=== PATIENT | female | born 1970 | race Caucasian/White ===

== ENCOUNTER → 2017-01-31 17:57 | Outpatient (CLI) | payer BC | END | disposition home or self-care (01) | LOC: D.MAMMO 15:30 | DX: Z12.31 Encounter for screening mammogram for malignant neoplasm of breast (principal) ==

== ENCOUNTER 2017-02-06 11:32 | Emergency (ER) | payer BC | END 2017-02-06 13:20 | disposition home or self-care (01) | LOC: D.ER 11:32 | DX: S43.402A Unspecified sprain of left shoulder joint, initial encounter (principal); X50.0XXA Overexertion from strenuous movement or load, initial encounter; Y93.89 Activity, other specified; Y92.019 Unspecified place in single-family (private) house as the place of occurrence of the external cause; G47.00 Insomnia, unspecified ==

== ENCOUNTER 2017-07-25 06:58 | Day surgery (SDC) | payer BC ==
[2017-07-24 16:48] LABS: HEMATOCRIT 40.5 % (36.0-48.0); HEMOGLOBIN 13.7 g/dL (12-16); MCHC 33.8 g/dL (31.0-37.0); MCV 91.6 fL (80.0-100.0); MEAN PLATELET VOLUME 9.6 fL (7.4-10.4); RBC 4.42 10x6/uL (4.00-5.40); WBC 8.3 10x3/uL (4.8-10.8)
[~2017-07-25 06:58] MED LIST: BUSPAR5 MG PO
[2017-07-25 12:21] VITALS: BP 110/53; BMI 23.0
--- NOTE | 2017-07-25 17:49 | NUR ---
PT BROUGHT POST OP BOOT WITH HER
--- NOTE | 2017-07-25 20:08 | NUR ---
1945 IV DC WITH CATHER TIP INTACT,
--- NOTE | 2017-08-13 10:04 | OP ---
PATIENT NAME: MELISSA CANSECO MEDICAL RECORD: [id number] :68 LOCATION:D.OPS ADMISSION DATE: SURGEON: DL HUTTON DATE OF OPERATION: 07/25/2017 SURGEON: Dl Hutton DPM. PREOPERATIVE DIAGNOSES: 1. Hammertoe, second toe, right foot. 2. Hammertoe, fifth toe, left foot. 3. Exostosis, fifth metatarsal, left foot, 4. Painful hardware, third metatarsal, left foot. 5. Foreign body, plantar left foot. POSTOPERATIVE DIAGNOSES: 1. Hammertoe, second toe, right foot. 2. Hammertoe, fifth toe, left foot. 3. Exostosis, fifth metatarsal, left foot, 4. Painful hardware, third metatarsal left foot. 5. Foreign body plantar left foot. PROCEDURES: 1. Arthrodesis second toe, right foot. 2. Arthroplasty, fifth toe, left foot. 3. Excision of exostosis, fifth metatarsal, left foot. 4. Removal of hardware third metatarsal, left foot. 5. Removal of foreign body, left foot. ANESTHESIA: Local with monitored anesthesia care. HEMOSTASIS: Pneumatic ankle tourniquet inflated to 250 mmHg. ESTIMATED BLOOD LOSS: Minimal. MATERIALS: A 3-0 Vicryl, 4-0 nylon. INJECTABLES: A 20 cc 0.5% bupivacaine plain. The patient has longstanding history of pain associated with the above-mentioned foot deformities, hardware and foreign body. She is here today for surgical correction of these pathologies. I have discussed with her the risks and benefits of the procedure. Complications were discussed. Her questions were answered. She was appropriately consented for the above-mentioned procedures. The patient was brought in the operating room and placed in the operating table in supine position. A timeout was called with Dr. Hutton, who identified the patient, the surgical site, and the surgeries to be performed. Once appropriate anesthesia was obtained, the foot was prepped and draped in the usual aseptic manner. The pneumatic ankle tourniquet was inflated to 250 mmHg on the well-padded right ankle. PROCEDURE NUMBER 1: Arthrodesis second toe, right foot. Attention was directed to the dorsal aspect of the second toe of the right foot OPERATIVE REPORT [id number] MELISSA CANSECO where a 3-cm linear incision was made. This incision was carried deep through soft tissue with care being taken to retract all vital neurovascular structures. All bleeders were cauterized along the way. The extensor tendon was then transected from medial to lateral at the level of the proximal interphalangeal joint. Next, utilizing a single action bone cutter, the head of the proximal phalanx was removed. All cartilage was removed from the base of the middle phalanx using a rongeur. Next, one 0.045 inch K-wire was drilled in to the middle phalanx exiting the toe. The K-wire was then retrograded back into the proximal phalanx. The surgical site was then irrigated with copious amounts of normal sterile saline via bulb syringe. The periosteum was reapproximated and coapted using 3-0 Vicryl. The extensor tendon was reapproximated and coapted using 3-0 Vicryl. The subQ was reapproximated and coapted using 3-0 Vicryl. The skin was reapproximated and coapted using 4-0 nylon. A dressing consisting of Xeroform, 4 x 4's, Kerlix, and Julio bandage was applied to the right foot. The pneumatic ankle tourniquet was deflated and capillary refill time is immediate to all digits of the right foot. The pneumatic ankle tourniquet was inflated to 250 mmHg on the well-padded left ankle. PROCEDURE NUMBER 2: Arthroplasty, fifth toe, left foot. Attention was directed to the fifth toe of the left foot where two converging semi-elliptical incisions were created on the dorsal lateral aspect of the left foot to facilitate the rotation. The ellipse of skin was removed. The periosteum was then reflected from the middle phalanx and distal phalanx in a wedge fashion. The surgical site was then irrigated with copious amounts of normal sterile saline via bulb syringe. The periosteum was then reapproximated and coapted utilizing 3-0 Vicryl with the toe held in a rectus position. The skin was then reapproximated and coapted using 4-0 nylon with toe held in a rectus position. PROCEDURE NUMBER 3: Removal of exostosis, fifth metatarsal left foot. Attention was directed to the base of the fifth metatarsal where a 3-cm linear incision was made. This incision was carried deep to soft tissue with care being taken to retract all vital neurovascular structures. All bleeders were cauterized along the way. Bony prominence was palpated beneath the periosteum at the direct lateral aspect of the fifth metatarsal. The periosteum was reflected from this area and the spur was removed with a sagittal saw and rongeur. The peroneal brevis tendon was not violated during this procedure. The surgical site was irrigated with copious amounts of normal sterile saline via bulb syringe. The periosteum was then reapproximated and coapted using 3-0 Vicryl. The subQ was reapproximated and coapted using 3-0 Vicryl. The skin was reapproximated and coapted using 4-0 nylon. PROCEDURE NUMBER 4: Removal of hardware in the left foot. Attention was directed to the dorsal aspect of the third metatarsophalangeal joint where a 3 cm incision was made. This incision was carried deep to soft tissue with care being taken to retract all vital neurovascular structures. All bleeders were cauterized along the way. The periosteum was then reflected from the head of the third metatarsal, thus revealing two prominent screws. Next, the screws were removed in toto utilizing freer and hemostat. The surgical site was then investigated for any remaining metal shards and none were noted. The surgical site was then irrigated with copious amounts of normal sterile saline OPERATIVE REPORT [id number] MELISSA CANSECO via bulb syringe. The periosteum was then reapproximated and coapted using 3-0 Vicryl. The subQ was then reapproximated and coapted using 3-0 Vicryl. The skin was reapproximated and coapted using 4-0 nylon. PROCEDURE NUMBER 5: Removal of foreign body, left foot. Attention was directed to the plantar surface of left foot where a 2-cm linear incision was made over the previously identified area of pain associated with foreign body. The incision was carried deep to soft tissue with care being taken to retract all vital neurovascular structures. Any bleeders were cauterized along the way. No foreign material was noted but there was a hard plug of scar tissue, which was surgically removed. The surgical site was then irrigated with copious amounts of normal sterile saline via bulb syringe. The surgical site was inspected for any possible foreign tissue and none was seen or palpated. The skin was then reapproximated and coapted utilizing 3-0 nylon. Dressings consisting of Xeroform, 4 x 4's, Kerlix, and Julio bandage were applied to all incisions of the left foot. The pneumatic ankle tourniquet was deflated and capillary refill time is immediate to all digits of the left foot. The patient tolerated the procedure and anesthesia well. She left the operating room with vital signs stable and capillary refill time intact. The patient was discharged home with instructions to ice and elevate her feet. She was dispensed a prescription for [place] 10/325, and Phenergan 25 mg, and ibuprofen 800 mg. She was dispensed a boot that she is to wear at all times on the left foot and a postop shoe that she is to wear all the times on the right foot. There were no complications with this procedure. The patient will follow up with me next week. She has my cell phone number for any after hours difficulties. ADDENDUM: The percutaneous K-wire involving the second toe of the right foot was bent and cut appropriately. TRANSINT:[id number] Voice Confirmation ID: [id number] DOCUMENT ID: [id number] DL HUTTON at 1004 CC: [id number] DICTATION DATE: 07/25/171828 RECONNAISSANCE MAN: 07/25/172031 [facility] 07/25/17 [id number] [place] [address]
== END 2017-07-25 20:06 | disposition home or self-care (01) ==
LOC: D.OPS 06:58 → D.PAN 12:55 → D.OPS 13:00 → D.PAN 13:30 → D.OPS 20:06
PROVIDERS: Anesthesiology
DX: M20.41 Other hammer toe(s) (acquired), right foot (principal); M20.42 Other hammer toe(s) (acquired), left foot; D16.32 Benign neoplasm of short bones of left lower limb; T84.84XA Pain due to internal orthopedic prosthetic devices, implants and grafts, initial encounter; M79.5 Residual foreign body in soft tissue; Z01.812 Encounter for preprocedural laboratory examination

== ENCOUNTER 2017-08-07 21:20 | Inpatient (IN) | payer BC ==
[2017-08-07 22:03] LABS: BASOPHILS 0.4 % (0-2); EOSINOPHILS 2.2 % (0-7); IMMATURE GRANULOCYTES 0.3 % (0-5); LYMPHOCYTES 32.8 % (15-50); MCHC 33.3 g/dL (31.0-37.0); MCV 93.1 fL (80.0-100.0); MEAN PLATELET VOLUME 9.2 fL (7.4-10.4); MONOCYTES 7.5 % (2-11); NEUTROPHILS 56.8 % (40-80); PLATELET COUNT 379 10x3/uL (130-400); RBC 4.51 10x6/uL (4.00-5.40); RDW 12.9 % (11.5-14.5); WBC 10.5 10x3/uL (4.8-10.8)
[2017-08-07 22:29] LABS: ALBUMIN 3.8 g/dL (3.4-5.0); ANION GAP 8.9 mmol/L (8-16); BILIRUBIN - TOTAL 0.2 mg/dL (0.2-1.3); CARBON DIOXIDE 27.6 mmol/L (21.0-32.0); CREATININE - SERUM 0.9 mg/dL (0.6-1.3); POTASSIUM - SERUM 3.5 mmol/L (3.5-5.1); PROTEIN - SERUM 7.4 g/dL (6.4-8.2)
--- NOTE | 2017-08-08 01:52 | NUR ---
RECIEVED PT TO FLOOR FROM ED VIA WHEELCHAIR. PT TRANSFERED SELF TO BED. ALERT AND ORIENTED AND ABLE TO VERBALIZE NEEDS. IV IS PATENT AND ANTIBIOTIC RUNNING FROM ED. PT IS AMBULATORY BUT WAS INSTRUCTED TO CALL FOR ANY ASSISTANCE NEEDED. DRESSINGS TO BILATERAL FEET C/D/I. PT STATES PAIN IS 10/10. PT IS ORIENTED TO ROOM AND USE OF CALL LIGHT. NO NEEDS ARE VERBALIZED AT THIS TIME. WILL CONTINUE TO MONITOR. SIDE RAILS ARE UP X 2. BED IS IN LOWEST POSITION. CALL LIGHT IS WITHIN REACH.
[2017-08-08 02:25] VITALS: BP 105/47; BMI 20.7
--- NOTE | 2017-08-08 07:00 | NUR ---
REPORT RECEIVED FROM OFF GOING NURSE. SEE FLOW SHEET FOR ASSESSMENT. PT REMAINS AT NPO FOR TODAYS INCISION AND DRAIN TO HER LEFT FOOT. KIM TO LEFT FOOT. RIGHT FOOT WRAPPED. PT STATES THAT SHE HAS A METAL PIN IN HER FOOT. DR LR ORDEREED A MRI TO HER LEFT FOOT. HE WAS NOTIFIED AND MRI WAS CHANGED TO A CT TO HER LEFT FOOT. PT BREATHING NORMAL AND UNLABORED. CALL LIGHT IN REACH. WILL CONT POC.
[2017-08-08 08:09] VITALS: BP 91/43
[2017-08-08 11:19] LABS: BASOPHILS 0.4 % (0-2); EOSINOPHILS 2.2 % (0-7); HEMATOCRIT 39.9 % (36.0-48.0); HEMOGLOBIN 13.3 g/dL (12-16); IMMATURE GRANULOCYTES 0.1 % (0-5); LYMPHOCYTES 32.5 % (15-50); MCH 30.8 pg (26.0-34.0); MCHC 33.3 g/dL (31.0-37.0); MCV 92.4 fL (80.0-100.0); MEAN PLATELET VOLUME 9.3 fL (7.4-10.4); MONOCYTES 7.7 % (2-11); NEUTROPHILS 57.1 % (40-80); PLATELET COUNT 333 10x3/uL (130-400); RBC 4.32 10x6/uL (4.00-5.40); RDW 12.8 % (11.5-14.5); WBC 9.1 10x3/uL (4.8-10.8)
--- NOTE | 2017-08-08 11:30 | NUR ---
PT PREOPED PER ORDERS.
[2017-08-08 11:42] LABS: ALBUMIN 3.3 g/dL (3.4-5.0); ALKALINE PHOSPHATASE 52 U/L (46-116); ALT (SGPT) 18 U/L (10-68); BILIRUBIN - TOTAL 0.31 mg/dL (0.2-1.3); CALC OSMOLALITY 280 mosm/kg (275-300); CALCIUM 8.4 mg/dL (8.5-10.1); CARBON DIOXIDE 26.7 mmol/L (21.0-32.0); CHLORIDE - SERUM 106 mmol/L (98-107); CREATININE - SERUM 0.8 mg/dL (0.6-1.3); GLUCOSE 88 mg/dL (74-106); POTASSIUM - SERUM 3.8 mmol/L (3.5-5.1); PROTEIN - SERUM 6.8 g/dL (6.4-8.2); SODIUM 141 mmol/L (136-145); UREA NITROGEN 16 mg/dL (7-18); eGFR NON AFRICAN AMERICAN 81 mL/min (90-120)
[2017-08-08 12:28] VITALS: BP 94/46
--- NOTE | 2017-08-08 12:30 | NUR ---
PT LEFT FOR PROCEDURE. LEFT VIA BED. BREATHING NORMAL AND UNLABORED. CALL LIGHT INR EACH. WILL CONT POC.
[2017-08-08 12:49] VITALS: BMI 20.6
--- NOTE | 2017-08-08 14:00 | NUR ---
PT BACK FROM PROCEDURE. VSS. BREATHING NORMAL AND UNLABOERD. C/O LEFT FOOT PAIN. PRN DILAUDID GIVEN. LEET FOOT WRAPPED AND ELEVATED. CALL LIGTH IN REACH. WILL CONT POC.
--- NOTE | 2017-08-08 18:58 | NUR ---
REPORT GIVEN TO ON COMING NURSE. PT BREATHING NORMALY AND UNLABORED. CALL LIGHT IN REACH.
--- NOTE | 2017-08-08 19:48 | NUR ---
PRN DILAUDID ADMINISTERED AT THIS TIME FOR PAIN IN LEFT FOOT. LEFT FOOT ELEVATED ON PILLOW. DENIES ANY OTHER NEEDS. ASSESSMENT COMPLETED AT THIS TIME PER FLOWSHEET. CALL LIGHT IN REACH, BED LOW.
[2017-08-08 20:00] VITALS: BP 93/40
--- NOTE | 2017-08-08 23:04 | NUR ---
PT UP WALKING IN THE [place] WITH BOOT TO LEFT FOOT IN PLACE. DENIES SEVERE PAIN, STATES "I JUST NEEDED TO GET UP AND MOVE AROUND, MY FOOT FEELS STIFF."
--- NOTE | 2017-08-09 | NUR ---
PRN DILAUDID ADMINISTERED AT THIS TIME FOR PAIN IN LEFT FOOT.
--- NOTE | 2017-08-09 03:14 | NUR ---
PRN DILAUDID ADMINISTERED AT THIS TIME FOR PAIN IN LEFT FOOT.
[2017-08-09 05:07] LABS: BASOPHILS 0.4 % (0-2); EOSINOPHILS 2.3 % (0-7); HEMATOCRIT 38.1 % (36.0-48.0); HEMOGLOBIN 12.5 g/dL (12-16); IMMATURE GRANULOCYTES 0.1 % (0-5); LYMPHOCYTES 31.4 % (15-50); MCH 30.6 pg (26.0-34.0); MCHC 32.8 g/dL (31.0-37.0); MCV 93.2 fL (80.0-100.0); MEAN PLATELET VOLUME 9.6 fL (7.4-10.4); MONOCYTES 7.1 % (2-11); NEUTROPHILS 58.7 % (40-80); PLATELET COUNT 359 10x3/uL (130-400); RBC 4.09 10x6/uL (4.00-5.40); RDW 12.8 % (11.5-14.5); WBC 8.5 10x3/uL (4.8-10.8)
[2017-08-09 05:20] LABS: CALC OSMOLALITY 279 mosm/kg (275-300); CALCIUM 8.6 mg/dL (8.5-10.1); CARBON DIOXIDE 30.7 mmol/L (21.0-32.0); CHLORIDE - SERUM 106 mmol/L (98-107); CREATININE - SERUM 0.8 mg/dL (0.6-1.3); GLUCOSE 104 mg/dL (74-106); POTASSIUM - SERUM 3.9 mmol/L (3.5-5.1); SODIUM 140 mmol/L (136-145); UREA NITROGEN 15 mg/dL (7-18); eGFR NON AFRICAN AMERICAN 81 mL/min (90-120)
--- NOTE | 2017-08-09 07:40 | NUR ---
PT AOX4 RESP EVEN AND NONLABORED PT DENIES NEEDS AT THIS TIME IV TO LEFT AC PATENT AND INTACT AT THIS TIME SRX2 BED AT LOWEST SETTING CALL LIGHT WITHIN REACH WILL CONTINUE TO MONITOR
[2017-08-09 08:38] VITALS: BP 110/44
[2017-08-09] MEDS ORDERED: CLEOCIN HCL300 MG PO (12:24)
[2017-08-09] MEDS ORDERED: HYDROCODON-ACE1 EAC7 PO (12:24)
[2017-08-09 13:01] VITALS: BP 112/43
--- NOTE | 2017-08-09 19:05 | NUR ---
IV DISCONTINUED WITH CATHETER INTACT AT THIS TIME PT GIVEN ONE PAPER SCRIPT AND DISCHARGE INSTRUCTIONS AT THIS TIME PT TAKEN VIA WHEELCHAIR VIA PRIVATE VEHICLE AT THIS TIME
--- NOTE | 2017-08-13 10:04 | OP ---
PATIENT NAME: MELISSA CANSECO MEDICAL RECORD: [id number] :68 LOCATION:D.[id number] ADMISSION DATE:08/07/17 SURGEON: JUAN HUTTON DATE OF OPERATION: 08/08/2017 SURGEON: Juan Hutton DPM PREOPERATIVE DIAGNOSIS: Abscess, left foot POSTOPERATIVE DIAGNOSIS: Abscess, left foot. PROCEDURE: Incision and drainage of abscess, left foot. ANESTHESIA: General. HEMOSTASIS: Maintained on the field. ESTIMATED BLOOD LOSS: Minimal. MATERIALS: Quarter-inch Iodoform packing. The patient has history of left foot surgery approximately 2 weeks ago, I was contacted by the Emergency Department at [facility] operating her left foot yesterday. After talking with the Emergency Room physician, the decision was made to have admitted. I further examined her foot this morning and abscess was noted. Decision was made to perform I and D at that time. We reviewed risks and benefits of the procedure. Complications were discussed, her questions were answered. She was appropriately consented for the above-mentioned procedure. The patient was brought in the operating room and placed in the operating table in supine position. A timeout was called with Dr. Hutton, who identified the patient, surgical site, and the surgery to be performed. Once appropriate anesthesia was obtained, the foot was prepped and draped in the usual aseptic manner. Incision and drainage of the left foot. Attention was directed to the plantar surface of the left foot where a previously created incision was noted. Palpation of the soft tissues around this incision did express a scant amount of purulent material. Utilizing Metzenbaum scissors and hemostasis, the incision was further opened up and explored. We were able to express approximately 2 mL of purulent material from the area. The surgical site was further investigated for any sinus track or her further deeper aspects of the wound and none were noted. There was no probe to bone. No tendon or structures were visualized during dissection. Scant amount of necrotic adipose tissue was debrided from the area. The area was then irrigated with Pulsavac and reexamined for any remaining pathological tissue and none was noted. Prior to utilization of the Pulsavac, deep cultures were obtained. The superficial blistering that had occurred medially around the area was dressed with incision and drainage of the individual blisters. A serous type drainage was expressed to knees. There was no further breakdown of the skin beneath the blister formation. The incision of the third metatarsal head was examined, 1 suture was removed OPERATIVE REPORT [id number] MELISSA CANSECO JULIENNE from this area and no purulent material or necrosis was noted in this area. All other incisions were dry and healing uneventfully. The surgical wound on the plantar surface of the foot was packed open with a quarter-inch Iodoform packing, further dressing consisting of 4 x 4's, Kerlix, and Julio bandage was applied to the left foot. The patient tolerated the procedure and anesthesia well. She left the operating room with vital signs stable and capillary refill time intact. She will return to the unit. She is currently receiving IV antibiotics (vancomycin). She is under the care of Dr. Tena. The patient tolerated the procedure and anesthesia well. She left the operating room with vital signs stable and capillary refill time intact. I will follow with this lady tomorrow in the hospital for a dressing change and potential discharges as soon as tomorrow afternoon. TRANSINT:[id number] Voice Confirmation ID: [id number] DOCUMENT ID: [id number] JUAN HUTTON at 1004 CC: [id number] DICTATION DATE: 08/08/17 1605 ONLINE PRODUCER: 08/08/171926 [facility] IN 08/09/17 [facility] [address] [place] [address]
[2017-08-22 17:12] LABS: AEROBE ID Final report (())
== END 2017-08-09 19:07 | disposition home or self-care (01) | DRG 863 ==
LOC: D.ER 21:20 → D.MS 23:11
PROVIDERS: Emergency Medicine; Podiatrist; ADMIT Family Medicine
PROC: 0Y9N0ZZ Drainage of Left Foot, Open Approach (ICD-10-PCS; principal; 2017-08-08 12:30)
DX: T81.4XXA Infection following a procedure, initial encounter (principal); L02.612 Cutaneous abscess of left foot; F17.203 Nicotine dependence unspecified, with withdrawal; C40.32 Malignant neoplasm of short bones of left lower limb

== ENCOUNTER → 2017-09-26 08:22 | Outpatient (CLI) | payer BC ==
[~2017-09-26 08:22] MED LIST changes: +CLEOCIN HCL300 MG PO; +HYDROCODON-ACE1 EAC7 PO
--- NOTE | 2017-09-28 08:18 | EC ---
PATIENT:MELISSA CANSECO DATE OF SERVICE: 09/26/17 SEX: F MEDICAL RECORD: [id number] DATE OF : 68 [facility] AGE OF PATIENT: 47 ADMISSION DATE: 09/26/17 REFERRING PHYSICIAN: INTERPRETING PHYSICIAN: YOLETTE GILMORE MD ECHOCARDIOGRAM REPORT ECHO CHARGES 4 ECHO COMPLETE CLINICAL DIAGNOSIS: CHEST PAIN ECHOCARDIOGRAPHIC MEASUREMENTS (adult normal given) AC root (d.<3.7cm) 2.6 cm LV Septum d (<1.2 cm> 1.2 cm Valve Excursion 1.7 cm LV Septum (systole) 1.4 cm Left Atria (s.<4.0cm> 3.0 cm LVPW d(<1.2cm) 1.3 cm RV (d.<2.3cm) 3.3 cm LVPW (sytole) 1.4 cm LV diastole(<5.6CM) 5.4 cm MV E-F(>70mm/sec) cm LV systole 3.6 cm LVOT Diameter 1.9 cm MV exc.(>10mm) 1.6 cm Est.ejection fraction (50-75%) % Pericardial Effusion N DOPPLER: LVIT cm/sec A 73.0 cm/sec E 79.0 cm/sec LA cm/sec RVSP 31 mmHg LVOT 117 cm/sec AOP1/2T m/s Asc. Ao 148 cm/sec RVOT 76 cm/sec RA cm/sec PA 94 cm/sec AV Gradient Peak 8.79 mmHg AV Mean 3.86 mmHg AV Area 2.2 cm MV Gradient Peak 2.16 mmHg MV Mean 1.25 mmHg MV Area cm COMMENTS: Molding Line Assistant: Dixie BOLTON Manufacturing Production Technician: 4 Dr. Gilmore TAPE# PACS DATE OF SERVICE: 09/26/2017 PROCEDURE: Transthoracic echocardiogram. FINDINGS: 1. The left ventricle has mild concentric left ventricular hypertrophy with an ejection fraction of 65%. Inflow characteristics are normal. 2. The right ventricle is normal size and normal function. 3. The left atrium is normal size and normal function. 4. The aortic valve is structurally normal. ECHOCARDIOGRAM REPORT [id number] MELISSA CANSECO 5. The mitral valve has trace mitral regurgitation, otherwise normal. 6. The tricuspid valve has a trace tricuspid regurgitation with normal right ventricular systolic pressures. 7. There is pericardial effusion. 8. Pulmonic valve appears normal. 9. The right atrium is normal size, normal function. 10. The right ventricle is normal size, normal function. CONCLUSIONS: The patient has evidence of mild LVH, otherwise normal echocardiogram for age. TRANSINT:[id number] Voice Confirmation ID: [id number] DOCUMENT ID: [id number] YOLETTE GILMORE MD at 0818 CC: [id number] DICTATION DATE: 09/27/17 0739 SCALE TECHNICIAN: 09/27/17 1207 DEP CLI 09/26/17 [facility] [address] [place] [address]
== END | disposition home or self-care (01) ==
LOC: D.ECHO 09-25 09:00 → D.US 09-25 10:00 → D.ECHO 08:22
DX: R07.9 Chest pain, unspecified (principal); I73.9 Peripheral vascular disease, unspecified; I95.9 Hypotension, unspecified; R00.2 Palpitations; E78.00 Pure hypercholesterolemia, unspecified

== ENCOUNTER → 2017-10-04 14:25 | Outpatient (CLI) | payer BC ==
[2017-10-10 09:13] LABS: CORTISOL FREE - 24HR 38 ug/24 hr (0-50); CORTISOL FREE - UR 28 ug/L (Undefined)
[2017-10-10 10:14] LABS: METAN - URINE 108 ug/L (Undefined); METAN - URINE 24HR 146 ug/24 hr (45-290)
[2017-10-10 12:14] LABS: VMA - URINE 2.5 mg/L (Undefined)
[2017-10-11 06:13] LABS: ALDOSTERONE - 24HR 6.41 ug/24 hr (0.00-19.00); ALDOSTERONE - UR 4.75 ug/L (Not Estab.)
== END | disposition home or self-care (01) ==
LOC: D.LAB 14:25
PROVIDERS: Surgery
DX: E07.9 Disorder of thyroid, unspecified (principal)

== ENCOUNTER → 2017-10-11 14:58 | Outpatient (CLI) | payer BC | END | disposition home or self-care (01) | LOC: D.CT 14:58 | DX: R51 Headache (principal); R13.10 Dysphagia, unspecified; I88.9 Nonspecific lymphadenitis, unspecified; H93.19 Tinnitus, unspecified ear ==

== ENCOUNTER → 2017-11-04 07:51 | Outpatient (CLI) | payer BC | END | disposition home or self-care (01) | LOC: D.MRI 07:51 | DX: R59.0 Localized enlarged lymph nodes (principal) ==

== ENCOUNTER → 2017-12-04 19:52 | Outpatient (CLI) | payer BC | END | disposition home or self-care (01) | LOC: D.SLEEP 19:52 | DX: G47.10 Hypersomnia, unspecified (principal) ==

== ENCOUNTER 2017-12-11 17:27 | Emergency (ER) | payer BC ==
[2017-12-11 18:15] LABS: ALBUMIN 3.7 g/dL (3.4-5.0); ANION GAP 9.9 mmol/L (8-16); BILIRUBIN - TOTAL 0.25 mg/dL (0.2-1.3); CALCIUM 9.3 mg/dL (8.5-10.1); CARBON DIOXIDE 30.3 mmol/L (21.0-32.0); CREATININE - SERUM 0.9 mg/dL (0.6-1.3); POTASSIUM - SERUM 4.2 mmol/L (3.5-5.1); PROTEIN - SERUM 7.7 g/dL (6.4-8.2)
== END 2017-12-11 21:57 | disposition home or self-care (01) ==
LOC: D.ER 17:27
PROVIDERS: Emergency Medicine
DX: T78.40XA Allergy, unspecified, initial encounter (principal); X58.XXXA Exposure to other specified factors, initial encounter

== ENCOUNTER 2017-12-31 06:33 | Outpatient (CLI) | payer BC ==
[~2017-12-31] VITALS: Ht 177.8 cm; Wt 69.5 kg
--- NOTE | ~2017-12-31 | HEMODYNAMI ---
PATIENT:MELISSA CANSECO MEDICAL RECORD: [id number] : 68 LOCATION:DSRIDHAR ADMISSION DATE: 12/31/17 Generatedon:12/31/20178:39 Patient name: MELISSA CANSECO Patient #: [id number] SSN: D OB: 1970 Date of study: 12/31/2017 Page: Of Hemodynamic Procedure Report Patient Data Patient Demographics Procedure consent was obtained First Name: Gender: Female Last Name: HARLEEN : 1970 [facility] Initial: JULIENNE Age: 47 year(s) Patient #: [id number] Race: Unknown Additional ID: [id number] Contact details Address: [address] [place] [address] [address] State: [place] City: [facility] Zip code: [address] Past Medical History Allergies: No known allergies Admission Admission Data Admission Date: 12/31/2017 Admission Time: 6:33 Lab Results Lab Result Date: 12/31/2017 Lab Result Time: 0:00 Biochemistry Name Units Result Min Max BUN mg/dl 11 --(-*--)-- 7 18 Creatinine mg/dl 0.8 --(-*--)-- 0.6 1.3 CBC Name Units Result Min Max Hemoglobin g/dl 14.3 --(*---)-- 13.5 17.5 Procedure Procedure Types Cath Procedure Diagnostic Procedure LHC C w/Coronaries Procedure Description Procedure Date Procedure Date: 12/31/2017 Procedure Start Time: 8:24 Procedure End Time: 8:38 Procedure Staff Name Function Jeyson Gilmore MD Performing Physician Senait Eagle RT Scrub Nuvia Hernandez RN Nurse Sabrina Dudley RT Monitor Procedure Data Cath Procedure Fluoroscopy Diagnostic fluoroscopy Total fluoroscopy Time: 2.1 time: 2.1 min min Diagnostic fluoroscopy Total fluoroscopy dose: 249 dose: 249 mGy mGy Contrast Material Contrast Material Type Amount (ml) Isovue 300 35 Entry Location Entry Primary Successful Side Size Upsize Upsize Entry Closure Roth ccessful Closure Location (Fr) 1 (Fr) 2 (Fr) Remarks Device Remarks Radial Right 6 Fr Mechanical artery Short Compression Estimated blood loss: 5 ml Diagnostic catheters Device Type Used For End Catheter Placement DIAGNOSTIC [place] 110cm 5 LV Angiography Fr catheter ([id number]) DIAGNOSTIC [place] 110cm 5 Left Coronary Fr catheter ([id number]) Angiography DIAGNOSTIC [place] 110cm 5 Right Coronary Fr catheter ([id number]) Angiography Procedure Complications No complications Procedure Medications Medication Administration Route Dosage Oxygen NC 2 l/min Lidocaine 2% added to field 20 Heparin Flush Bag added to field 2 bags (1000units/500ml NS) 0.9% NaCl I.V. 100 ml/hr Versed I.V. 2 mg Fentanyl I.V. 50 mcg Versed I.V. 1 mg Fentanyl I.V. 50 mcg Radial Cocktail I.A. 1 syringe (Verapomil 2mg/Nitro 400mcg/Heparin 1500units) Hemodynamics Rest HGB: 14.3 (g/dl) Heart Rate: 65 (bpm) Pressure Samples Time Site Value (mmHg) Purpose Heart Use Rate(bpm) 8:31 LV 103/-14,4 EDP 101 Gradients Valve Time Site Site Mean SEP/DFP Peak To Heart Use 1 2 (mmHg) (sec/min) Peak Rate (mmHg) (bpm) Aortic 8:31 LV AO 91 Snapshots Pre Cath Intra NCS Post Cath Vital Signs Time Heart Resp SPO2 etCO2 NIBP Rhythm Pain Sedation Rate (ipm) (%) (mmHg) (mmHg) Status Level (bpm) 8:14:13 70 15 100 0 108/63(80) NSR 0 (11) 10(A) , No pain 8:18:45 66 16 100 15.6 110/63(94) NSR 0 (11) 10(A) , No pain 8:23:19 76 19 100 27.5 99/68(87) NSR 0 (11) 10(A) , No pain 8:27:54 81 16 97 32.7 106/56(90) NSR 0 (11) 10(A) , No pain 8:32:34 88 14 97 35.8 92/47(72) NSR 0 (11) 10(A) , No pain 8:37:34 90 17 98 31.3 Measuring NSR 0 (11) 10(A) , No pain Medications Time Medication Route Dose Verified Delivered Reason Notes E ffectiveness by by 8:19:52 Oxygen NC 2 l/min Jeyson Buffie used for Mando Hernandez RN procedure MD 8:19:59 Lidocaine 2% added 20ml Jeyson Jeyson for local to vial Mando Gilmore MD anesthetic field RAJPUT 8:20:05 Heparin Flush added 2 bags Jeyson Jeyson used for Bag to Mando Gilmore MD procedure (1000units/500ml field RAJPUT NS) 8:20:14 0.9% NaCl I.V. 100 Jeyson Buffie Per ml/hr Mando Hernandez RN physician 8:21:11 Versed I.V. 2 mg Jeyson Buffie for sedation Mando Hernandez RN, MD 8:21:19 Fentanyl I.V. 50 mcg Jeyson Buffie for sedation Mando Hernandez RN, MD 8:27:47 Radial Cocktail I.A. 1 Jeyson Jeyson for (Verapomil syringe Mando Gilmore MD vasodilation 2mg/Nitro MD 400mcg/Heparin 1500units) 8:29:46 Versed I.V. 1 mg Jeyson Buffie for sedation Mando Hernandez RN, MD 8:29:51 Fentanyl I.V. 50 mcg Jeyson Buffie for sedation Mando Hernandez RN, MD Procedure Log Time Note 8:00:36 H&P Date Dictated: 12/26/2017 Within 30 days and on chart., H&P Addendum completed by physician on day of procedure. (MUST COMPLETE FOR ALL OUTPATIENTS). 8:00:46 Patient allergic to No known allergies 8:01:40 Lab Result : Hemoglobin 14.3 g/dl 8:01:40 Lab Result : Creatinine 0.8 mg/dl 8:01:40 Lab Result : BUN 11 mg/dl 8:02:14 Senait Eagle RT(R) sent for patient. Start room use. 8:03:31 Time tracking: Regular hours 8:03:34 Plan of Care:Hemodynamics will remain stable., Cardiac rhythm will remain stable., Comfort level will be maintained., Respiratory function will remain adequate., Patient/ family verbilizes understanding of procedure., Procedure tolerated without complication., Recovers from procedure without complications.. 8:08:51 Patient received from Pre/Post Procedure Room to [facility] Alert and oriented. Tansferred to table in Supine position. 8:08:52 Warm blankets applied, and elaine hugger turned on for patient comfort. 8:08:53 Correct patient and procedure confirmed by team. 8:08:55 Signed procedure consent form obtained from patient. 8:08:56 ECG and BP/O2 sat monitors applied to patient. 8:08:57 Full Disclosure recording started 8:13:25 Vital chart was started 8:13:27 Baseline sample Acquired. 8:13:32 Rhythm: sinus rhythm 8:13:36 Pre-procedure instructions explained to patient. 8:13:37 Pre-op teaching completed and patient verbalized understanding. 8:13:38 Family in waiting room. 8:13:40 Patient NPO since Midnight. 8:19:30 Patient not . Patient has had hysterectomy. 8:19:46 Is the patient allergic to Iodine/contrast media? No. 8:19:50 Is patient on blood thinner?No 8:19:52 Oxygen 2 l/min NC was administered by Nuvia Hernandez RN; used for procedure; 8:19:52 Patient diabetic? No. 8:19:55 Previous problem with sedation/anesthesia? No ? 8:19:56 Snore? No 8:19:57 Sleep apnea? No 8:19:58 Deviated septum? No 8:19:59 Lidocaine 2% 20ml vial added to field was administered by Jeyson Gilmore MD; for local anesthetic; 8:20:05 Heparin Flush Bag (1000units/500ml NS) 2 bags added to field was administered by Jeyson Gilmore MD; used for procedure; 8:20:08 Opens mouth fully? Yes 8:20:09 Sticks out tongue? Yes 8:20:10 Airway obstruction? No ? 8:20:12 Dentures? No ? 8:20:14 0.9% NaCl 100 ml/hr I.V. was administered by Nuvia Hernandez RN; Per physician; 8:20:14 Pre procedure: right dorsailis pedis pulse 2+ Normal; easily identifiable; not easily obliterated 8:20:16 Modified Bubba's test Ulnar < 7 seconds 8:20:18 Patient pain scale 0/10 ?. 8:20:21 IV patent on arrival in left hand with 0.9% NaCl at O. 8:20:24 Lab results completed and on chart. 8:20:33 Right Radial & Right Groin area was prepped with chlora-prep and draped in sterile fashion 8:20:34 Alarms reviewed by R. N. 8:20:35 Sharps counted by scrub and verified by R.N. 8:20:37 Final Timeout: patient, procedure, and site verified with staff and physician. All members of the team are in agreement. 8:20:39 Right Radial site verified by team. 8:20:43 Physical assessment completed. ASA score P 2 - A patient with mild systemic disease as per Jeyson Gilmore MD. 8:20:48 Sedation plan: IV Moderate Sedation Medication:Versed, Fentanyl 8:21:11 Versed 2 mg I.V. was administered by Nuvia Hernandez RN; for sedation; 8:21:19 Fentanyl 50 mcg I.V. was administered by Nuvia Hernandez RN; for sedation; 8:24:37 Use device set Radial Dx or PCI 8:24:39 ACIST Syringe (83345) opened to sterile field. 8:24:39 Medline Cath Pack ([id number]) opened to sterile field. 8:24:39 Bag Decanter (2002S) opened to sterile field. 8:24:40 SHEATH 6FR Slender ([id number]) opened to sterile field. 8:24:40 DIAGNOSTIC WIRE .035 260cm J wire (327850) opened to sterile field. 8:24:41 ACIST Hand Control (71369) opened to sterile field. 8:24:41 ACIST Manifold (45039) opened to sterile field. 8:24:41 Tegaderm 4 x 4 (1626W) opened to sterile field. 8:24:43 MBrace Wrist Support ([id number]) opened to sterile field. 8:24:49 Procedure started. 8:24:53 Local anesthetic to right radial artery with Lidocaine 2% by Jeyson Gilmore MD.INITIAL ACCESS ONLY 8:24:55 Zero performed for pressure channel P1 8:26:18 A 6 Fr Short sheath was inserted into the Right Radial artery 8:27:47 Radial Cocktail (Verapomil 2mg/Nitro 400mcg/Heparin 1500units) 1 syringe I.A. was administered by Jeyson Gilmore MD; for vasodilation; 8:29:46 Versed 1 mg I.V. was administered by Nuvia Hernandez RN; for sedation; 8:29:51 Fentanyl 50 mcg I.V. was administered by Nuvia Hernandez RN; for sedation; 8:30:41 A DIAGNOSTIC [place] 110cm 5 Fr catheter (414120) was advanced over the wire and used for LV Angiography. 8:31:11 LV gram done using COOK 8:31:28 LV hemodynamics recorded. 8:31:32 Injector settings: Ml/sec: 12, Volume: 8, 8:33:32 A DIAGNOSTIC [place] 110cm 5 Fr catheter (964917) was advanced over the wire and used for Left Coronary Angiography. 8:34:08 A DIAGNOSTIC [place] 110cm 5 Fr catheter (518161) was advanced over the wire and used for Right Coronary Angiography. 8:34:09 Catheter removed. 8:34:19 Sheath removed intact; hemostasis achieved with Mechanical Compression to the Right Radial artery. 8:34:22 Procedure ended.(Physican Out) 8:35:01 Fluoroscopy time 02.10 minutes. 8:35:05 Flurop Dose total: 249 8:35:05 Fluoroscopy dose: 249 mGy 8:35:09 Contrast amount:Isovue 300 35ml. 8:35:11 Sharps counted by scrub and verified by R.N. 8:35:13 Insertion/operative site no bleeding no hematoma. 8:35:25 Post right radial artery:stable, clean and dry 8:35:27 Post Procedure Pulses reassessed and unchanged 8:35:29 Post-procedure physical assessment completed. ASA score P 2 - A patient with mild systemic disease as per Jeyson Gilmore MD. 8:35:33 Post procedure rhythm: unchanged. 8:35:34 Post procedure instruction explained to patient.Patient verbalizes understanding. 8:35:36 Estimated blood loss: 5 ml 8:35:37 Patient needs reinforcement of post procedure teaching. 8:36:14 Procedure Complication : No complications 8:36:16 See physician's report for complete and final results. 8:36:31 TR BAND Standard ([id number]) opened to sterile field. 8:36:55 Procedure and supply charges have been captured, reviewed, submitted and are correct. 8:37:48 Vital chart was stopped 8:37:52 Report given to Pre/Post Procedure Room. 8:37:55 Patient transfered to Pre/Post Procedure Room with Stretcher. 8:38:13 Procedure ended. 8:38:13 Full Disclosure recording stopped 8:38:16 End room use (Document Last) Device Usage Item Name Manufacture Quantity Catalog Hospital Part Current Minima l Lot# / Number Charge Number Stock Stock Serial# Code ACIST Acist 1 81044 759170 427849 672590 20 Syringe Medical (42305) Systems Inc Medline Cath Cardinal 1 [id number] 689945 50927 723143 5 Pack Health ([id number]) Bag Decanter Microtek 1 2002S 250684 43303 254332 5 (2001S) Medical Inc. SHEATH 6FR Terumo 1 [id number] 866035 376670 007684 40 Slender ([id number]) DIAGNOSTIC St Arturo 1 950804 386101 726388 359468 30 WIRE .035 260cm J wire (773110) ACIST Hand Acist 1 26808 541692 972762 998483 5 Control Medical (77181) Systems Inc ACIST Acist 1 05494 153132 505125 442736 5 Manifold Medical (36437) Systems Inc Tegaderm 4 x 3M 1 1626W 104573 016291 097146 5 4 (1626W) MBrace Wrist Advanced 1 140-0250-00 123104 77132 529992 5 Support Vascular ([id number]) Dynamics DIAGNOSTIC Terumo 1 40-6758 033722 258476 992123 5 [place] 110cm 5 Fr catheter (405881) TR BAND Terumo 1 RWO15-DAY 226007 255140 366823 40 Standard ([id number]) Signature Audit Dale Stage Time Signature Unsigned Intra-Procedure 12/31/2017 Sabrina 8:39:10 AM Counts RT(R) Signatures Monitor : Sabrina Signature : Counts RT Date : Time : [place] [id number] [place] [address]
[2017-12-31] MEDS ORDERED: SYNTHROID112 MCG PO (06:45)
[2017-12-31] MEDS ORDERED: CALCIUM 250+D T1 TAB PO (06:46)
[2017-12-31] MEDS ORDERED: AMBIEN10 MG PO (06:46)
[2017-12-31] MEDS ORDERED: LIPITOR20 MG PO (06:47)
[2017-12-31 06:59] VITALS: BP 118/64; Ht 177.8 cm; Wt 69.5 kg
[2017-12-31 07:09] LABS: BASOPHILS 0.4 % (0-2); EOSINOPHILS 1.7 % (0-7); HEMATOCRIT 42.1 % (36.0-48.0); HEMOGLOBIN 14.3 g/dL (12-16); IMMATURE GRANULOCYTES 0.4 % (0-5); LYMPHOCYTES 25.1 % (15-50); MCH 30.7 pg (26.0-34.0); MCV 90.3 fL (80.0-100.0); MEAN PLATELET VOLUME 9.5 fL (7.4-10.4); MONOCYTES 7.4 % (2-11); PLATELET COUNT 317 10x3/uL (130-400); RBC 4.66 10x6/uL (4.00-5.40); RDW 13.6 % (11.5-14.5); WBC 9.9 10x3/uL (4.8-10.8)
[2017-12-31 07:24] LABS: CALC OSMOLALITY 268 mosm/kg (275-300); CALCIUM 8.6 mg/dL (8.5-10.1); CARBON DIOXIDE 24.3 mmol/L (21.0-32.0); CHLORIDE - SERUM 101 mmol/L (98-107); CREATININE - SERUM 0.8 mg/dL (0.6-1.3); GLUCOSE 93 mg/dL (74-106); POTASSIUM - SERUM 3.8 mmol/L (3.5-5.1); SODIUM 135 mmol/L (136-145); UREA NITROGEN 11 mg/dL (7-18); eGFR NON AFRICAN AMERICAN 81 mL/min (90-120)
== END 2017-12-31 11:24 | disposition home or self-care (01) ==
LOC: D.CATH 06:33
PROVIDERS: Internal Medicine Cardiovascular Disease
DX: R07.9 Chest pain, unspecified (principal); R94.39 Abnormal result of other cardiovascular function study; I95.9 Hypotension, unspecified; R06.00 Dyspnea, unspecified; F17.200 Nicotine dependence, unspecified, uncomplicated; Z01.812 Encounter for preprocedural laboratory examination

== ENCOUNTER 2018-01-05 19:53 | Emergency (ER) | payer BC ==
[2017-12-31 06:59] VITALS: BMI 21.9
[~2018-01-05 19:53] MED LIST changes: +AMBIEN10 MG PO; +CALCIUM 250+D T1 TAB PO; +LIPITOR20 MG PO; +SYNTHROID112 MCG PO
== END 2018-01-05 20:15 | disposition home or self-care (01) ==
LOC: D.ER 19:53
DX: G89.18 Other acute postprocedural pain (principal)

== ENCOUNTER → 2018-01-22 13:06 | Outpatient (CLI) | payer BC ==
[2017-12-31 06:59] VITALS: BMI 21.9
[~2018-01-22 13:06] MED LIST changes: +NICODERM C1 PATCH .1 TRANSDERM; +PROTONIX40 MG PO; +SYNTHROID150 MCG PO
== END | disposition home or self-care (01) ==
LOC: D.MRI 13:06
DX: G44.009 Cluster headache syndrome, unspecified, not intractable (principal)

== ENCOUNTER 2018-02-17 15:55 | Observation (INO) | payer BC ==
[~2018-02-17] VITALS: Ht 177.8 cm; Wt 79.3 kg
--- NOTE | ~2018-02-17 | EC ---
PATIENT:MELISSA CANSECO DATE OF SERVICE: 02/17/18 SEX: F MEDICAL RECORD: [id number] DATE OF : [birth year] LOCATION:D.M2 D.211 AGE OF PATIENT: 47 ADMISSION DATE: 02/17/18 REFERRING PHYSICIAN: INTERPRETING PHYSICIAN: YOLETTE GILMORE MD ECHOCARDIOGRAM REPORT ECHO CHARGES 4 ECHO COMPLETE Date: 02/19 CLINICAL DIAGNOSIS: HYPOTHYROIDISM ECHOCARDIOGRAPHIC MEASUREMENTS (adult normal given) AC root (d.<3.7cm) 2.5 cm LV Septum d (<1.2 cm> 1.2 cm Valve Excursion 2.0 cm LV Septum (systole) 1.7 cm Left Atria (s.<4.0cm> 3.2 cm LVPW d(<1.2cm) 1.3 cm RV (d.<2.3cm) 2.7 cm LVPW (sytole) 1.7 cm LV diastole(<5.6CM) 4.5 cm MV E-F(>70mm/sec) cm LV systole 2.9 cm LVOT Diameter 1.9 cm MV exc.(>10mm) cm Est.ejection fraction (50-75%) % DOPPLER: LVIT cm/sec A 43.0 cm/sec E 92.0 cm/sec LA cm/sec RVSP 22.1 mmHg LVOT 87.0 cm/sec AOP1/2T m/s Asc. Ao 122 cm/sec RVOT 57.0 cm/sec RA cm/sec PA 75.0 cm/sec AV Gradient Peak 6.0 mmHg AV Mean 3.0 mmHg AV Area 1.9 cm MV Gradient Peak 3.3 mmHg MV Mean 1.1 mmHg MV Area cm COMMENTS: Rental Representative: 1 MEENA GARCIADSOE Wood Buffer: 4 Dr. Gilmore TAPE# PACS Pericardial Effusion N DATE OF SERVICE: PROCEDURE: Transthoracic echocardiogram. FINDINGS: 1. Left ventricle shows evidence of mild left ventricular hypertrophy. Inflow characteristics are normal. Ejection fraction 55%. 2. The left atrium is normal size, normal function. 3. The aortic valve is normal. 4. The mitral valve is normal. ECHOCARDIOGRAM REPORT [id number] MELISSA CANSECO 5. The tricuspid valve is normal. 6. The pericardium is normal. 7. The right ventricle and right atrium are normal. CONCLUSIONS: Normal echocardiogram for the patient's stated age. TRANSINT:[id number] Voice Confirmation ID: [id number] DOCUMENT ID: [id number] YOLETTE GILMORE MD at 0819 CC: [id number] DICTATION DATE: 02/20/18828 MDS COORDINATOR: 02/20/18 1406 DIS IN 02/21/18 [facility] [address] [place] [id number]
[~2018-02-17 15:55] MED LIST changes: -NICODERM C1 PATCH .1 TRANSDERM; -PROTONIX40 MG PO; -SYNTHROID150 MCG PO
[2018-02-17 16:54] LABS: BASOPHILS 0.5 % (0-2); EOSINOPHILS 1.8 % (0-7); IMMATURE GRANULOCYTES 0.3 % (0-5); LYMPHOCYTES 32.5 % (15-50); MCH 31.6 pg (26.0-34.0); MCHC 34.9 g/dL (31.0-37.0); MCV 90.7 fL (80.0-100.0); MEAN PLATELET VOLUME 9.5 fL (7.4-10.4); MONOCYTES 4.8 % (2-11); NEUTROPHILS 60.1 % (40-80); PLATELET COUNT 309 10x3/uL (130-400); RBC 4.74 10x6/uL (4.00-5.40); RDW 14.1 % (11.5-14.5); WBC 10.6 10x3/uL (4.8-10.8)
[2018-02-17 17:17] LABS: ALBUMIN 3.9 g/dL (3.4-5.0); ANION GAP 14.8 mmol/L (8-16); BILIRUBIN - TOTAL 0.5 mg/dL (0.2-1.3); CALCIUM 8.4 mg/dL (8.5-10.1); CARBON DIOXIDE 25.1 mmol/L (21.0-32.0); CREATININE - SERUM 1.1 mg/dL (0.6-1.3); POTASSIUM - SERUM 3.9 mmol/L (3.5-5.1); PROTEIN - SERUM 7.7 g/dL (6.4-8.2)
[2018-02-17 17:24] LABS: APPEARANCE CLEAR (CLEAR); BILIRUBIN NEGATIVE (NEGATIVE); COLOR YELLOW (YELLOW); GLUCOSE NEGATIVE (NEGATIVE); KETONE NEGATIVE (NEGATIVE); NITRITE NEGATIVE (NEGATIVE); PROTEIN NEGATIVE (NEGATIVE); UROBILINOGEN NORMAL (NORMAL)
[2018-02-17 17:39] LABS: AMYLASE - SERUM 47 U/L (25-115); LIPASE 134 U/L (73-393)
[2018-02-17 17:54] LABS: THYROID STIMULATING HORMONE 108.59 uIU/mL (0.36-3.74)
[2018-02-17 18:55] LABS: T4 THYROXIN - FREE 0.24 ng/dL (0.76-1.46); T4 THYROXINE 1.7 ug/dL (4.7-13.3)
[2018-02-17 22:21] VITALS: BMI 24.1
[2018-02-17] MEDS ORDERED: PROTONIX40 MG PO (22:26)
[2018-02-18] VITALS (7 sets, daily range): BP systolic 83–128; BP diastolic 43–69; Ht 177.8 cm; Wt 79.3 kg
[2018-02-19] VITALS: BP 113/63
[2018-02-19 04:00] VITALS: BP 99/47
[2018-02-19 05:23] LABS: BASOPHILS 0.4 % (0-2); EOSINOPHILS 1.8 % (0-7); HEMOGLOBIN 12.6 g/dL (12-16); IMMATURE GRANULOCYTES 0.3 % (0-5); MCH 30.3 pg (26.0-34.0); MCHC 33.2 g/dL (31.0-37.0); MCV 91.3 fL (80.0-100.0); MEAN PLATELET VOLUME 9.5 fL (7.4-10.4); MONOCYTES 6.1 % (2-11); NEUTROPHILS 58.4 % (40-80); PLATELET COUNT 284 10x3/uL (130-400); RBC 4.16 10x6/uL (4.00-5.40); WBC 9.2 10x3/uL (4.8-10.8)
[2018-02-19 05:28] LABS: ANION GAP 10.1 mmol/L (8-16); CALCIUM 7.9 mg/dL (8.5-10.1); CARBON DIOXIDE 27.8 mmol/L (21.0-32.0); POTASSIUM - SERUM 3.9 mmol/L (3.5-5.1)
[2018-02-19 09:15] VITALS: BP 107/46
[2018-02-19 14:29] VITALS: BP 105/78
[2018-02-19 16:21] VITALS: BP 108/77
[2018-02-19 19:00] VITALS: BP 137/58
[2018-02-20 00:22] VITALS: BP 101/58
[2018-02-20 04:00] VITALS: BP 97/33
[2018-02-20 05:28] LABS: BASOPHILS 0.5 % (0-2); HEMOGLOBIN 12.3 g/dL (12-16); IMMATURE GRANULOCYTES 0.2 % (0-5); MCH 30.5 pg (26.0-34.0); MCHC 33.2 g/dL (31.0-37.0); MCV 91.8 fL (80.0-100.0); MEAN PLATELET VOLUME 9.7 fL (7.4-10.4); MONOCYTES 6.3 % (2-11); PLATELET COUNT 273 10x3/uL (130-400); RBC 4.03 10x6/uL (4.00-5.40); WBC 9.7 10x3/uL (4.8-10.8)
[2018-02-20 05:42] LABS: ANION GAP 8.2 mmol/L (8-16); CALCIUM 7.9 mg/dL (8.5-10.1); CARBON DIOXIDE 30.5 mmol/L (21.0-32.0); POTASSIUM - SERUM 3.7 mmol/L (3.5-5.1)
[2018-02-20 08:13] VITALS: BP 102/46
[2018-02-20 12:51] VITALS: BP 131/60
[2018-02-20 20:00] VITALS: BP 97/61
[2018-02-21 04:00] VITALS: BP 104/49
[2018-02-21 06:27] LABS: BASOPHILS 0.5 % (0-2); EOSINOPHILS 1.8 % (0-7); HEMATOCRIT 39.5 % (36.0-48.0); HEMOGLOBIN 13.2 g/dL (12-16); IMMATURE GRANULOCYTES 0.4 % (0-5); LYMPHOCYTES 32.8 % (15-50); MCH 30.7 pg (26.0-34.0); MCHC 33.4 g/dL (31.0-37.0); MCV 91.9 fL (80.0-100.0); MEAN PLATELET VOLUME 9.5 fL (7.4-10.4); MONOCYTES 7.2 % (2-11); NEUTROPHILS 57.3 % (40-80); PLATELET COUNT 290 10x3/uL (130-400); WBC 9.1 10x3/uL (4.8-10.8)
[2018-02-21 06:39] LABS: ANION GAP 11.1 mmol/L (8-16); CALCIUM 8.4 mg/dL (8.5-10.1); CARBON DIOXIDE 28.6 mmol/L (21.0-32.0); CREATININE - SERUM 0.9 mg/dL (0.6-1.3); POTASSIUM - SERUM 3.7 mmol/L (3.5-5.1)
[2018-02-21 09:09] VITALS: BP 114/67
[2018-02-21] MEDS ORDERED: NICODERM C1 PATCH .1 TRANSDERM (10:19)
[2018-02-21] MEDS ORDERED: SYNTHROID150 MCG PO (10:20)
[2018-02-21 11:53] VITALS: BP 104/52
== END 2018-02-21 16:30 | disposition home or self-care (01) ==
LOC: D.ER 15:55 → D.EDHOLD 20:41 → D.M2 20:41 → OBSVTIME 20:42 → D.M2 21:26
PROVIDERS: Family Medicine; Internal Medicine Nephrology
DX: E03.9 Hypothyroidism, unspecified (principal); Z85.850 Personal history of malignant neoplasm of thyroid; F17.203 Nicotine dependence unspecified, with withdrawal; E27.8 Other specified disorders of adrenal gland; F41.9 Anxiety disorder, unspecified; Z91.14 Patient's other noncompliance with medication regimen; R51 Headache; G47.00 Insomnia, unspecified

== ENCOUNTER → 2018-06-03 14:23 | Outpatient (CLI) | payer BC ==
[~2018-06-03 14:23] MED LIST changes: +NICODERM C1 PATCH .1 TRANSDERM; +PROTONIX40 MG PO; +SYNTHROID150 MCG PO
== END | disposition home or self-care (01) ==
LOC: D.CT 14:23
DX: D49.7 Neoplasm of unspecified behavior of endocrine glands and other parts of nervous system (principal)

== ENCOUNTER → 2018-06-24 17:07 | Outpatient (CLI) | payer BC ==
[2018-06-24 18:13] LABS: CHOL - HDL RATIO 6.8 ratio (2.3-4.1)
== END | disposition home or self-care (01) ==
LOC: D.LABREF 17:07
PROVIDERS: Internal Medicine Cardiovascular Disease
DX: E78.5 Hyperlipidemia, unspecified (principal)

== ENCOUNTER → 2018-07-07 15:02 | Outpatient (CLI) | payer BC | END | disposition home or self-care (01) | LOC: D.CT 13:30 | DX: R59.0 Localized enlarged lymph nodes (principal) ==

== ENCOUNTER 2018-07-22 11:54 | Emergency (ER) | payer BC ==
[~2018-07-22] VITALS: Ht 177.8 cm; Wt 68.9 kg
[2018-07-22 12:00] VITALS: BP 99/73; Ht 177.8 cm; Wt 68.9 kg
[2018-07-22 12:43] LABS: BASOPHILS 0.5 % (0-2); EOSINOPHILS 4.4 % (0-7); HEMATOCRIT 40.7 % (36.0-48.0); IMMATURE GRANULOCYTES 0.6 % (0-5); MCHC 34.4 g/dL (31.0-37.0); MEAN PLATELET VOLUME 9.3 fL (7.4-10.4); MONOCYTES 5.2 % (2-11); NEUTROPHILS 64.3 % (40-80); RBC 4.52 10x6/uL (4.00-5.40); RDW 13.2 % (11.5-14.5); WBC 8.9 10x3/uL (4.8-10.8)
[2018-07-22 12:45] LABS: PLATELET COUNT 357 10x3/uL (130-400)
[2018-07-22] MEDS ORDERED: AMBIEN10 MG PO (12:45)
[2018-07-22] MEDS ORDERED: GABAPENTIN100 MG PO (12:45)
[2018-07-22 12:46] LABS: APPEARANCE CLEAR (CLEAR); BILIRUBIN NEGATIVE (NEGATIVE); COLOR YELLOW (YELLOW); GLUCOSE NEGATIVE (NEGATIVE); KETONE NEGATIVE (NEGATIVE); NITRITE NEGATIVE (NEGATIVE); PROTEIN NEGATIVE (NEGATIVE); UROBILINOGEN NORMAL (NORMAL)
[2018-07-22] MEDS ORDERED: COMBIVENT RESPIM4 GM INH (12:46)
[2018-07-22] MEDS ORDERED: PEPCID AC20 MG PO (12:46)
[2018-07-22] MEDS ORDERED: BUSPAR 15 MG TA15 MG PO (12:48)
[2018-07-22 12:49] LABS: BACTERIA MODERATE /hpf (NONE SEEN); RED CELLS - URINE 0-5 /hpf (0-5); WHITE CELLS - URINE 0-5 /hpf (0-5)
[2018-07-22] MEDS ORDERED: CALCIUM 600 +1 EAC3 PO (12:49)
[2018-07-22] MEDS ORDERED: ATIVAN1 MG PO (12:53)
[2018-07-22] MEDS ORDERED: HYDROCHLOROTH12.5 M1 PO (12:54)
[2018-07-22 12:56] LABS: ALBUMIN 3.6 g/dL (3.4-5.0); ANION GAP 12.5 mmol/L (8-16); BILIRUBIN - TOTAL 0.18 mg/dL (0.2-1.3); CALCIUM 9.1 mg/dL (8.5-10.1); CARBON DIOXIDE 27.5 mmol/L (21.0-32.0); CREATININE - SERUM 0.9 mg/dL (0.6-1.3); PROTEIN - SERUM 7.7 g/dL (6.4-8.2)
[2018-07-22] MEDS ORDERED: PHENERGAN25 M1 PO (12:57)
[2018-07-22 13:05] LABS: THYROID STIMULATING HORMONE 1.23 uIU/mL (0.36-3.74)
[2018-07-22] MEDS ORDERED: LOMOTIL 2.5-0.1 EAC1 PO (16:19)
== END 2018-07-22 16:47 | disposition home or self-care (01) ==
LOC: D.ER 11:54
PROVIDERS: Emergency Medicine
DX: R19.7 Diarrhea, unspecified (principal)

== ENCOUNTER 2019-06-17 22:35 | Emergency (ER) | payer BC ==
[~2019-06-17] VITALS: Ht 177.8 cm; Wt 76.4 kg
[~2019-06-17 22:35] MED LIST changes: +ATIVAN1 MG PO; +BUSPAR 15 MG TA15 MG PO; +CALCIUM 600 +1 EAC3 PO; +COMBIVENT RESPIM4 GM INH; +GABAPENTIN100 MG PO; +HYDROCHLOROTH12.5 M1 PO; +LOMOTIL 2.5-0.1 EAC1 PO; +PEPCID AC20 MG PO; +PHENERGAN25 M1 PO
[2019-06-17 22:41] VITALS: Ht 177.8 cm; Wt 76.4 kg
[2019-06-17] MEDS ORDERED: FLORINEF 0.1 M0.1 MG PO (22:45)
[2019-06-17] MEDS ORDERED: VITAMIN D250000 UNIT PO (22:45)
[2019-06-17 23:14] LABS: BASOPHILS 0.4 % (0-2); EOSINOPHILS 3.3 % (0-7); HEMATOCRIT 42.2 % (36.0-48.0); HEMOGLOBIN 15.1 g/dL (12-16); IMMATURE GRANULOCYTES 0.5 % (0-5); LYMPHOCYTES 33.5 % (15-50); MCH 31.5 pg (26.0-34.0); MCHC 35.8 g/dL (31.0-37.0); MCV 88.1 fL (80.0-100.0); MEAN PLATELET VOLUME 9.2 fL (7.4-10.4); MONOCYTES 7.3 % (2-11); PLATELET COUNT 327 10x3/uL (130-400); RBC 4.79 10x6/uL (4.00-5.40); RDW 13.6 % (11.5-14.5); WBC 10.3 10x3/uL (4.8-10.8)
[2019-06-17 23:28] LABS: ALBUMIN 3.8 g/dL (3.4-5.0); ANION GAP 13.1 mmol/L (8-16); BILIRUBIN - TOTAL 0.32 mg/dL (0.2-1.3); CALCIUM 8.2 mg/dL (8.5-10.1); CREATININE - SERUM 1.1 mg/dL (0.6-1.3); POTASSIUM - SERUM 4.1 mmol/L (3.5-5.1); PROTEIN - SERUM 7.6 g/dL (6.4-8.2)
[2019-06-18 00:06] LABS: APPEARANCE CLEAR (CLEAR); BILIRUBIN NEGATIVE (NEGATIVE); COLOR YELLOW (YELLOW); GLUCOSE NEGATIVE (NEGATIVE); KETONE NEGATIVE (NEGATIVE); NITRITE NEGATIVE (NEGATIVE); PROTEIN NEGATIVE (NEGATIVE); UROBILINOGEN NORMAL (NORMAL)
[2019-06-18 00:08] LABS: BACTERIA FEW /hpf (NONE SEEN); EPITHELIAL CELLS 0-5 /hpf (0-5); RED CELLS - URINE 0-5 /hpf (0-5); WHITE CELLS - URINE 0-5 /hpf (0-5)
[2019-06-18] MEDS ORDERED: SULFAMETHOXAZOL1 TA2 PO (02:33)
[2019-06-18 02:43] VITALS: BP 118/64
== END 2019-06-18 02:43 | disposition home or self-care (01) ==
LOC: D.ER 22:35
PROVIDERS: Family Medicine
DX: L03.311 Cellulitis of abdominal wall (principal)

== ENCOUNTER 2019-07-21 06:37 | Day surgery (SDC) | payer BC ==
[~2019-07-21] VITALS: Ht 177.8 cm; Wt 74.8 kg
[~2019-07-21 06:37] MED LIST changes: +BUTALB-APAP-CA1 EACH PO; +CORTEF10 MG PO; +FLORINEF 0.1 M0.1 MG PO; +LEVOTHYROXINE137 MCG PO; -LIPITOR20 MG PO; +LIPITOR40 MG PO; +MAG-OX 400 MG400 MG PO; +SULFAMETHOXAZOL1 TA2 PO; +VITAMIN D250000 UNIT PO
[2019-07-21 07:01] LABS: BASOPHILS 0.2 % (0-2); EOSINOPHILS 2.4 % (0-7); HEMATOCRIT 42.6 % (36.0-48.0); HEMOGLOBIN 14.3 g/dL (12-16); IMMATURE GRANULOCYTES 0.2 % (0-5); LYMPHOCYTES 39.9 % (15-50); MCH 30.7 pg (26.0-34.0); MCHC 33.6 g/dL (31.0-37.0); MCV 91.4 fL (80.0-100.0); MEAN PLATELET VOLUME 9.5 fL (7.4-10.4); MONOCYTES 7.4 % (2-11); NEUTROPHILS 49.9 % (40-80); PLATELET COUNT 340 10x3/uL (130-400); RBC 4.66 10x6/uL (4.00-5.40); RDW 13.6 % (11.5-14.5); WBC 8.9 10x3/uL (4.8-10.8)
[2019-07-21 07:04] LABS: APTT 28.6 SECONDS (22.8-39.4); INR 0.99 (0.85-1.17); PROTIME 12.6 SECONDS (11.6-15.0)
[2019-07-21 07:05] LABS: ANION GAP 12.6 mmol/L (8-16); CARBON DIOXIDE 30.4 mmol/L (21.0-32.0); CREATININE - SERUM 0.9 mg/dL (0.6-1.3)
[2019-07-21 07:33] VITALS: BP 119/93; Ht 177.8 cm; Wt 74.8 kg
[2019-07-21] MEDS ORDERED: PERCOCET 5-3251 TAB PO (08:44)
--- NOTE | 2019-07-21 09:40 | NUR ---
0930 SERVED FULL LIQUID DIET. Josue RESENDEZ R.N.
--- NOTE | 2019-07-21 13:01 | NUR ---
1130 TRANSPORTATION HERE. TO PRIVATE CAR PER WHEELCHAIR. HOME WITH MALE. Josue RESENDEZ R.N.
--- NOTE | 2019-08-06 13:49 | OP ---
PATIENT NAME: MELISSA CANSECO MEDICAL RECORD: [id number] :68 LOCATION:D.OPS ADMISSION DATE: SURGEON: MARQUIS ROLDAN MD DATE OF OPERATION: 07/21/2019 PREOPERATIVE DIAGNOSES: 1. Bilateral adrenalectomy. 2. Adrenal cancer. 3. Hypercholesterolemia. 4. History of medullary thyroid cancer. POSTOPERATIVE DIAGNOSES: 1. Bilateral adrenalectomy. 2. Adrenal cancer. 3. Hypercholesterolemia. 4. History of medullary thyroid cancer. PROCEDURE: Left subclavian vein port placement. SURGEON: Marquis Roldan MD REPORT OF PROCEDURE: The patient's left chest was prepped and draped in sterile fashion. A needle was used to cannulate the left subclavian vein and a guidewire was advanced with ease. Fluoro was used to note that the wire was in good position in the venous system. A skin incision was made on the left superior lateral chest and a subcutaneous pouch was made over the pectoral fascia. The catheter was tunneled between this pouch and the wire exit site. The port was sutured to the pectoral fascia using interrupted 2-0 Prolenes times 2. The catheter was then cut with a beveled tip at 24 cm. The dilator trocar device was placed over the wire and the wire and dilator were removed. The catheter tip was advanced through the trocar and the trocar was removed. The catheter tip was noted to be resting in good position at the right atrial superior vena caval junction. The catheter aspirated nonpulsatile dark blood and flushed easily with heparinized saline. The subcutaneous tissues were reapproximated with interrupted 3-0 Vicryl and the skin was closed with running subcutaneous 5-0 Monocryl. COMPLICATIONS: None. CONDITION: Stable. ANESTHESIA: General endotracheal and local. BLOOD LOSS: Minimal. TRANSINT:[id number] Voice Confirmation ID: [id number] DOCUMENT ID: [id number] OPERATIVE REPORT [id number] NÉSTORMELISSA GRIER MARQUIS FOSTER MD at 1349 CC: ANA AGGARWAL [id number] DICTATION DATE: 07/21/19 0849 POLICE SURGEON: 07/21/[address] [facility] 07/21/19 [place] [id number]
== END 2019-07-21 11:30 | disposition home or self-care (01) ==
LOC: D.OPS 06:37 → D.PAN 09:45 → D.OPS 09:45
PROVIDERS: Anesthesiology; ATTEND Surgery
DX: C74.90 Malignant neoplasm of unspecified part of unspecified adrenal gland (principal); E78.00 Pure hypercholesterolemia, unspecified

== ENCOUNTER 2019-08-19 16:19 | Inpatient (IN) | payer BC ==
[~2019-08-19] VITALS: Ht 177.8 cm; Wt 76.2 kg
[~2019-08-19 16:19] MED LIST changes: +PERCOCET 5-3251 TAB PO
--- NOTE | 2019-08-19 16:30 | NUR ---
PT RECIEVED FROM DR AGGARWAL OFFICE. NO SIGNS OF DISTRESS. PORT ACCESSED VIA DR ANSARI DENIES ANY FUTHER NEED AT THIS TIME.
[2019-08-19 17:17] VITALS: BP 101/46; BMI 24.1
[2019-08-19 17:38] LABS: BASOPHILS 0.2 % (0-2); EOSINOPHILS 3.9 % (0-7); HEMATOCRIT 38.8 % (36.0-48.0); HEMOGLOBIN 13.3 g/dL (12-16); IMMATURE GRANULOCYTES 0.4 % (0-5); LYMPHOCYTES 35.9 % (15-50); MCH 30.9 pg (26.0-34.0); MCHC 34.3 g/dL (31.0-37.0); MCV 90.2 fL (80.0-100.0); MEAN PLATELET VOLUME 9.6 fL (7.4-10.4); MONOCYTES 10.2 % (2-11); NEUTROPHILS 49.4 % (40-80); PLATELET COUNT 298 10x3/uL (130-400); RDW 12.9 % (11.5-14.5); WBC 8.2 10x3/uL (4.8-10.8)
[2019-08-19 18:36] LABS: ALBUMIN 3.7 g/dL (3.4-5.0); ALKALINE PHOSPHATASE 61 U/L (46-116); ALT (SGPT) 22 U/L (10-68); AMYLASE - SERUM 50 U/L (25-115); BILIRUBIN - TOTAL 0.42 mg/dL (0.2-1.3); CALC OSMOLALITY 278 mosm/kg (275-300); CALCIUM 8.7 mg/dL (8.5-10.1); CHLORIDE - SERUM 103 mmol/L (98-107); CREATININE - SERUM 0.8 mg/dL (0.6-1.3); LIPASE 788 U/L (73-393); POTASSIUM - SERUM 3.6 mmol/L (3.5-5.1); PROTEIN - SERUM 6.9 g/dL (6.4-8.2); SODIUM 140 mmol/L (136-145); UREA NITROGEN 11 mg/dL (7-18); eGFR NON AFRICAN AMERICAN 80 mL/min (90-120)
[2019-08-19 18:37] LABS: GLUCOSE 111 mg/dL (74-106)
[2019-08-19 21:00] VITALS: BP 111/59
[2019-08-20] VITALS (7 sets, daily range): BP systolic 90–110; BP diastolic 38–60; Ht 177.8 cm; Wt 76.2 kg
[2019-08-20 06:33] LABS: BASOPHILS 0.4 % (0-2); HEMATOCRIT 37.1 % (36.0-48.0); HEMOGLOBIN 12.1 g/dL (12-16); IMMATURE GRANULOCYTES 0.3 % (0-5); LYMPHOCYTES 36.4 % (15-50); MCHC 32.6 g/dL (31.0-37.0); MCV 92.1 fL (80.0-100.0); MEAN PLATELET VOLUME 9.1 fL (7.4-10.4); MONOCYTES 10.4 % (2-11); NEUTROPHILS 48.5 % (40-80); PLATELET COUNT 263 10x3/uL (130-400); RBC 4.03 10x6/uL (4.00-5.40); WBC 7.5 10x3/uL (4.8-10.8)
--- NOTE | 2019-08-20 06:43 | NUR ---
I have reviewed this patient and I concur with the Shift Assessment completed by the Licensed Practical Nurse today this shift.
[2019-08-20 07:03] LABS: INR 1.08 (0.85-1.17); PROTIME 13.5 SECONDS (11.6-15.0)
[2019-08-20 07:04] LABS: APTT 29.3 SECONDS (22.8-39.4)
[2019-08-20 07:27] LABS: ALBUMIN 3.2 g/dL (3.4-5.0); ALKALINE PHOSPHATASE 53 U/L (46-116); ALT (SGPT) 25 U/L (10-68); BILIRUBIN - TOTAL 0.35 mg/dL (0.2-1.3); CALC OSMOLALITY 280 mosm/kg (275-300); CALCIUM 8.2 mg/dL (8.5-10.1); CARBON DIOXIDE 26.2 mmol/L (21.0-32.0); CHLORIDE - SERUM 107 mmol/L (98-107); CREATININE - SERUM 0.7 mg/dL (0.6-1.3); GLUCOSE 95 mg/dL (74-106); MAGNESIUM - SERUM 1.8 mg/dL (1.8-2.4); PHOSPHOROUS 5.2 mg/dL (2.5-4.9); POTASSIUM - SERUM 3.9 mmol/L (3.5-5.1); PROTEIN - SERUM 6.3 g/dL (6.4-8.2); SODIUM 142 mmol/L (136-145); THYROID STIMULATING HORMONE 0.14 uIU/mL (0.36-3.74); eGFR NON AFRICAN AMERICAN > 90 mL/min (90-120)
[2019-08-20 07:31] LABS: UREA NITROGEN 8 mg/dL (7-18)
--- NOTE | 2019-08-20 07:44 | NUR ---
REC'D IN BED AWAKE AND ALERT. RESP EVEN AND UNLABORED WITH NO DISTRESS NOTED. CAN EXPRESS NEEDS AND WANTS. VOICES NO CONCERNS AT THIS TIME. AMBULATE WITH SLOW AND STEADY GAIT. ASSESSMENT COMPLETED. C/L IN REACH AT BEDSIDE.
--- NOTE | 2019-08-20 18:53 | NUR ---
I have reviewed this patient and I concur with the Shift Assessment completed by the Licensed Practical Nurse today this shift.
--- NOTE | 2019-08-20 19:50 | NUR ---
SITTING UP IN BED DRINKING BOWEL PREP. IRRITABLE. PREP STARTED PRIOR TO SHIFT CHANGE. CONSENTS SIGNED AND ON CHART. ALERT AND ORIENTED X4. NS @ 125 MLHR AND ZOFRAN DRIP NOT CONNECTED TO PT AT THIS TIME. PREVIOUS NURSE STATES PT REQUESTS FLUIDS BE DISCONNECTED WHILE SHE WALKS AROUND HOSPITAL FREQUENTLY. EXPLAINED IMPORTANCE OF IV FLUIDS AND ZOFRAN DRIP TO PT. PT AGREED TO LET STAFF START FLUIDS AGAIN. RESP EVEN AND NONLABORED. BS PRESENT X4 QUADS. RATES PAIN IN ABD 6. B/P LOW. EXPLAINED NPO AFTER MIDNIGHT AND SHE VERBALIZED UNDERSTANDING. CL IN REACH.
--- NOTE | 2019-08-20 21:00 | NUR ---
MEDICATED WITH MORPHINE FOR C/O ABD PAIN. MANUAL B/P OK FOR PAIN MEDS NOW. WILL CONT TO MONITOR. PT STILL DRINKING BOWEL PREP. NO RESULTS YET. CL IN REACH.
[2019-08-21 00:22] VITALS: BP 98/50
--- NOTE | 2019-08-21 00:57 | NUR ---
COMPLETED ORAL BOWEL PREP BEFORE MIDNIGHT. PT HAS HAD NO RESULTS YET. AMBULATING IN HALLWAY AT THIS TIME. DISCONNECTED FROM IV FLUIDS AT THIS TIME PER PT REQUEST.
--- NOTE | 2019-08-21 03:18 | NUR ---
PT HAS HAD NO RESULTS FROM PLENVU BOWEL PREP. NOTIFIED ANDREA BENNETT. INSTRUCTED TO INFORM PREOP OF THIS IN AM.
--- NOTE | 2019-08-21 06:23 | NUR ---
STATES SHE HAD A "TINY BM" BUT IT WAS APPROX 2 OUNCES OF CLEAR YELLOW FLUID.
[2019-08-21 06:26] LABS: BASOPHILS 0.3 % (0-2); EOSINOPHILS 2.5 % (0-7); HEMATOCRIT 36.4 % (36.0-48.0); HEMOGLOBIN 11.7 g/dL (12-16); IMMATURE GRANULOCYTES 0.2 % (0-5); LYMPHOCYTES 44.6 % (15-50); MCH 30.1 pg (26.0-34.0); MCHC 32.1 g/dL (31.0-37.0); MCV 93.6 fL (80.0-100.0); MEAN PLATELET VOLUME 9.6 fL (7.4-10.4); MONOCYTES 7.6 % (2-11); NEUTROPHILS 44.8 % (40-80); PLATELET COUNT 286 10x3/uL (130-400); RBC 3.89 10x6/uL (4.00-5.40); RDW 13.1 % (11.5-14.5); WBC 6.3 10x3/uL (4.8-10.8)
[2019-08-21 06:53] LABS: CALC OSMOLALITY 275 mosm/kg (275-300); CALCIUM 8.4 mg/dL (8.5-10.1); CARBON DIOXIDE 30.2 mmol/L (21.0-32.0); CHLORIDE - SERUM 106 mmol/L (98-107); CREATININE - SERUM 0.8 mg/dL (0.6-1.3); GLUCOSE 92 mg/dL (74-106); MAGNESIUM - SERUM 1.7 mg/dL (1.8-2.4); PHOSPHOROUS 4.5 mg/dL (2.5-4.9); POTASSIUM - SERUM 3.7 mmol/L (3.5-5.1); SODIUM 139 mmol/L (136-145); UREA NITROGEN 6 mg/dL (7-18); eGFR NON AFRICAN AMERICAN 80 mL/min (90-120)
--- NOTE | 2019-08-21 07:16 | NUR ---
UNABLE TO COMPLETE COLONOSCOPY THIS AM PER GI STAFF. PT TO RETURN TO FLOOR.
--- NOTE | 2019-08-21 08:00 | NUR ---
PT RETURNS TO FLOOR FROM GI PROCEDURE. PT IS AAO X 4. PT REQUESTS ASSISTANCE IN CHANGING INTO PERSONAL PAJAMAS. ASSISTANCE GIVEN. PT DENIES PRESENCE OF PAIN/N/V AT THIS TIME. BS HYPOACTIVE X 4. BED IS IN THE LOWEST POSITION. CALL LIGHT AND BEDSIDE TABLE ARE WITHIN REACH. SIDE RAILS X 2. PT DENIES FURTHER NEEDS. WILL CONT TO MONITOR.
[2019-08-21 08:25] VITALS: BP 98/37
--- NOTE | 2019-08-21 10:27 | MORECARE ---
CASE MANAGEMENT DISCHARGE SUMMARY PATIENT: MELISSA CANSECO JULIENNE UNIT: [id number] ADM DATE: 08/19/19 AGE: 49 : 68 SEX: F ROOM/BED: D.2239 AUTHOR: VERO HERNANDEZ PHYSICIAN: REFERRING PHYSICIAN: ANA TENA MD DATE OF SERVICE: 08/21/19 Discharge Plan Patient Name: MELISSA CANSECO Facility: [facility]:[place] : 1970 Planned Disposition: Home Anticipated Discharge Date: Discharge Date: Expected LOS: Initial Reviewer: [email or web address] Initial Review Date: 08/21/2019 Generated: 08/21/19 11:27 am DCPIA - Discharge Planning Initial Assessment Updated by [email or web address]: Lakehsia Jade on 08/21/19 10:23 am * Is the patient Alert and Oriented? Yes * How many steps to enter\exit or inside your home? 1/0 * PCP Dr. Tena * Pharmacy [facility] on [facility] * Preadmission Environment Home with Family * ADLs Partial Dependent * Partial ADLs (Assistance needed) Ambulation * Equipment Oxygen Walker * List name and contact numbers for known caregivers / representatives who currently or will assist patient after discharge: [facility] - [phone] * Verbal permission to speak to the caregivers and representatives has been obtained from the patient. Yes * Community resources currently utilized None * Please name any agencies selected above. DME company for oxygen is [facility] Patient * Additional services required to return to the preadmission environment? No * Can the patient safely return to the preadmission environment? Yes * Has this patient been hospitalized within the prior 30 days at any hospital? No Patient Name: MELISSA CANSECO Page [phone] at 1027 All edits/amendments must be made on the electronic document DICTATION DATE: 08/21/19 1027 PART MAKER: TOM 08/21/19 1027 RPT#: [id number] DC DATE: STATUS: ADM IN [facility] [address] [place] [address] END OF REPORT
--- NOTE | 2019-08-21 10:36 | MORECARE ---
CASE MANAGEMENT DISCHARGE SUMMARY PATIENT: MELISSA CANSECO JULIENNE UNIT: [id number] ADM DATE: 08/19/19 AGE: 49 : 68 SEX: F ROOM/BED: D.2239 AUTHOR: VERO HERNANDEZ PHYSICIAN: REFERRING PHYSICIAN: ANA TENA MD DATE OF SERVICE: 08/21/19 Discharge Plan Patient Name: MELISSA CANSECO Facility: [facility]:[place] : 1970 Planned Disposition: Home Anticipated Discharge Date: Discharge Date: Expected LOS: Initial Reviewer: [email or web address] Initial Review Date: 08/21/2019 Generated: 08/21/19 11:36 am Comments DCP- Discharge Planning Updated by [email or web address]: Lakeshia Jade on 08/21/19 9:[address] Patient Name: MELISSA CANSECO Admission Status: Urgent Accout number: [id number] Admission Date: 08-19-2019 : 1970 Admission Diagnosis: Attending: ANA TENA Current LOS: 2 Anticipated DC Date: Planned Disposition: Home Primary Insurance: Buddy O Discharge Planning Comments: CM met with patient to discuss discharge planning/needs, she is alone in the room. She lives with her independently. She states that she no longer drives (I just don't like to). States her , sister or neighbor drives her where she wants to go. States she has a rollator walker and oxygen concentrator at home. Her supplies come from [facility] Patient, but she would like to change companies. She asked me to call her senior case manager from insurance to inquire about what company she can use. I called Miesha Rose at [facility] at [phone] and informed her that patient would like to change oxygen companies and also asking for a wheelchair. Miesha tells me that she would need to go through Dr. Tena office for the wheelchair since he is the one requesting it for the patient. Miesha states she is unsure if she can change oxygen companies, but will send me a list of DME companies in network. No other needs identified at this time. Patient denies need for home health services at this time, and she is independent. CM will continue to follow and assist with discharge planning/needs. Fur Storage Clerk: Lakeshia Kalie DCPIA - Discharge Planning Initial Assessment Updated by [email or web address]: Lakeshia Kalie on 08/21/19 10:23 am * Is the patient Alert and Oriented? Yes * How many steps to enter\exit or inside your home? 1/0 * PCP Dr. Tena * Pharmacy [facility] on [address] * Preadmission Environment Home with Family * ADLs Partial Dependent * Partial ADLs (Assistance needed) Ambulation * Equipment Oxygen Walker * List name and contact numbers for known caregivers / representatives who currently or will assist patient after discharge: [facility] - [phone] * Verbal permission to speak to the caregivers and representatives has been obtained from the patient. Yes * Community resources currently utilized None * Please name any agencies selected above. DME company for oxygen is [facility] Patient * Additional services required to return to the preadmission environment? No * Can the patient safely return to the preadmission environment? Yes * Has this patient been hospitalized within the prior 30 days at any hospital? No Last DP export: 08/21/19 9:27 a Patient Name: MELISSA CANSECO Page [phone] at 1036 All edits/amendments must be made on the electronic document DICTATION DATE: 08/21/191034 SASH ASSEMBLER: TOM 08/21/19 103 RPT#: [id number] DC DATE: STATUS: ADM IN [facility] [address] [place] [address] END OF REPORT
[2019-08-21 12:46] VITALS: BP 102/53
[2019-08-21 15:53] VITALS: BP 103/35
[2019-08-21 20:16] VITALS: BP 99/30
--- NOTE | 2019-08-21 23:30 | NUR ---
PT A&O X 4, AMBULATING INDEPENDENTLY IN [place]. REPORTS PAIN TO BACK, BUT REQUESTS PRN SLEEP MED SOON. REFUSES NPO STATUS AFTER MIDNIGHT, STATES HER ARTEM'S DISEASE CAUSES DEHYDRATION DESPITE RECIEVING FLUIDS AND SHE HAS TO SIP WATER AND ICE CHIPS. WILL CONTINUE PLAN OF CARE.
[2019-08-22 00:46] VITALS: BP 105/49
[2019-08-22 05:28] LABS: BASOPHILS 0.5 % (0-2); EOSINOPHILS 2.4 % (0-7); HEMATOCRIT 32.1 % (36.0-48.0); HEMOGLOBIN 10.3 g/dL (12-16); IMMATURE GRANULOCYTES 0.2 % (0-5); LYMPHOCYTES 42.7 % (15-50); MCH 29.7 pg (26.0-34.0); MCHC 32.1 g/dL (31.0-37.0); MCV 92.5 fL (80.0-100.0); MEAN PLATELET VOLUME 9.5 fL (7.4-10.4); MONOCYTES 8.6 % (2-11); NEUTROPHILS 45.6 % (40-80); PLATELET COUNT 255 10x3/uL (130-400); RBC 3.47 10x6/uL (4.00-5.40); RDW 13.1 % (11.5-14.5); WBC 6.6 10x3/uL (4.8-10.8)
[2019-08-22 06:00] LABS: CALC OSMOLALITY 289 mosm/kg (275-300); CALCIUM 8.2 mg/dL (8.5-10.1); CARBON DIOXIDE 27.7 mmol/L (21.0-32.0); CHLORIDE - SERUM 111 mmol/L (98-107); CREATININE - SERUM 0.8 mg/dL (0.6-1.3); GLUCOSE 91 mg/dL (74-106); LIPASE 104 U/L (73-393); MAGNESIUM - SERUM 1.9 mg/dL (1.8-2.4); PHOSPHOROUS 4.2 mg/dL (2.5-4.9); POTASSIUM - SERUM 3.3 mmol/L (3.5-5.1); SODIUM 147 mmol/L (136-145); UREA NITROGEN 6 mg/dL (7-18); eGFR NON AFRICAN AMERICAN 80 mL/min (90-120)
[2019-08-22 08:20] VITALS: BP 101/56
--- NOTE | 2019-08-22 08:22 | NUR ---
0800 BRITTNEY GOMEZ CRNA NOTIFIED THAT PREOP MEDS HAD NOT BEEN ORDERED. HE STATES THAT IS "OK" AND TO BRING PT TO GI LAB. PERMITS SIGNED AND ON CHART.
--- NOTE | 2019-08-22 17:14 | MORECARE ---
CASE MANAGEMENT DISCHARGE SUMMARY PATIENT: MELISSA CANSECO JULIENNE UNIT: [id number] ADM DATE: 08/19/19 AGE: 49 : 68 SEX: F ROOM/BED: D.2239 AUTHOR: VERO HERNANDEZ PHYSICIAN: REFERRING PHYSICIAN: ANA TENA MD DATE OF SERVICE: 08/22/19 Discharge Plan Patient Name: MELISSA CANSECO Facility: [facility]:[place] : 1970 Planned Disposition: Home Anticipated Discharge Date: Discharge Date: Expected LOS: Initial Reviewer: [email or web address] Initial Review Date: 08/21/2019 Generated: 08/22/19 6:14 pm Comments DCP- Discharge Planning Updated by [email or web address]: Courtney Pagan on 08/22/19 4:[address] Patient Name: MELISSA CANSECO Encounter No: [id number] : 1970 Primary Insurance: [employer] [facility] Anticipated DC Date: Planned Disposition: Home External Planned Provider: : DCP follow-up note: Patient and family in agreement with discharge plan. No changes to plan. I WILL GIVE PATIENT DIMITRIOS'S CONTACT INFORMATION FOR SWITCHING 02 COMPANIES. Case management will follow and assist as needed. Courtney Pagan DCP- Discharge Planning Updated by [email or web address]: Lakeshia Jade on 08/21/19 9:[address] Patient Name: MELISSA CANSECO Admission Status: Urgent Accout number: [id number] Admission Date: 08-19-2019 : 1970 Admission Diagnosis: Attending: ANA TENA Current LOS: 2 Anticipated DC Date: Planned Disposition: Home Primary Insurance: [employer] [facility] Discharge Planning Comments: CM met with patient to discuss discharge planning/needs, she is alone in the room. She lives with her independently. She states that she no longer drives (I just don't like to). States her , sister or neighbor drives her where she wants to go. States she has a rollator walker and oxygen concentrator at home. Her supplies come from [facility], but she would like to change companies. She asked me to call her heel caser from insurance to inquire about what company she can use. I called Miehsa Rose at [facility] at [id number] and informed her that patient would like to change oxygen companies and also asking for a wheelchair. Miesha tells me that she would need to go through Dr. Tena office for the wheelchair since he is the one requesting it for the patient. Miesha states she is unsure if she can change oxygen companies, but will send me a list of DME companies in network. No other needs identified at this time. Patient denies need for home health services at this time, and she is independent. CM will continue to follow and assist with discharge planning/needs. Senior Property Accountant: Lakeshia [facility]ade [facility] Planning Initial Assessment Updated by [email or web address]: Lakeshia Jade on 08/21/19 10:23 am * Is the patient Alert and Oriented? Yes * How many steps to enter\exit or inside your home? 1/0 * PCP Dr. Tena * Pharmacy [facility] on [facility] * Preadmission Environment Home with Family * ADLs Partial Dependent * Partial ADLs (Assistance needed) Ambulation * Equipment Oxygen Walker * List name and contact numbers for known caregivers / representatives who currently or will assist patient after discharge: [facility] - [phone] * Verbal permission to speak to the caregivers and representatives has been obtained from the patient. Yes * Community resources currently utilized None * Please name any agencies selected above. DME company for oxygen is [facility] * Additional services required to return to the preadmission environment? No * Can the patient safely return to the preadmission environment? Yes * Has this patient been hospitalized within the prior 30 days at any hospital? No Coverage Notice Reviewer: [id number] - Lakeshia Jade Notice Issued Date-Time: 08/21/2019 16:28 Notice Type: Patient Choice Letter Notice Delivered To: Patient Relationship to Patient: Self Ecological Modeler Name: Delivery Method: HAND - Hand Delivered Halina Days: Prior Verbal Notification: Recipient Understood Notice: Yes Recipient Signature: Yes Med Rec Note Co-signed by Attending: Coverage Notice Comment: ABRAHAM FOR DIMITRIOS Ferrara [place] export: 08/21/19 9:36 a Patient Name: MELISSA CANSECO Page [phone] at 5954 All edits/amendments must be made on the electronic document DICTATION DATE: 08/22/191713 INJECTION MACHINE OPERATOR: TOM 08/22/191713 RPT#: [id number] DC DATE: STATUS: ADM IN [facility] [address] [place] [address] END OF REPORT
[2019-08-22] MEDS ORDERED: PERCOCET 5-3251 TAB PO (18:12)
--- NOTE | 2019-08-22 19:29 | NUR ---
REVIEWED D/C ORDERS WITH PT, PROVIDED RX, DEACCESSED PORT, [place] [facility], WALKED FROM UNIT
--- NOTE | 2019-08-25 07:18 | MORECARE ---
CASE MANAGEMENT DISCHARGE SUMMARY PATIENT: MELISSA CANSECO JULIENNE UNIT: [id number] ADM DATE: 08/19/19 AGE: 49 : 68 SEX: F ROOM/BED: D.2239 AUTHOR: VERO HERNANDEZ PHYSICIAN: REFERRING PHYSICIAN: ANA TENA MD DATE OF SERVICE: 08/25/19 Discharge Plan Patient Name: MELISSA CANSECO Facility: [facility]:[place] : 1970 Planned Disposition: Home Anticipated Discharge Date: Discharge Date: 08/22/2019 Expected LOS: 0 Initial Reviewer: [email or web address] Initial Review Date: 08/21/2019 Generated: 08/25/19 8:17 am Comments DCP- Discharge Planning Updated by [email or web address]: Courtney Pagan on 08/22/19 4:[address] Patient Name: MELISSA CANSECO Encounter No: [id number] : 1970 Primary Insurance: [employer] Anticipated DC Date: Planned Disposition: Home External Planned Provider: : DCP follow-up note: Patient and family in agreement with discharge plan. No changes to plan. I WILL GIVE PATIENT DIMITRIOS'S CONTACT INFORMATION FOR SWITCHING 02 COMPANIES. Case management will follow and assist as needed. Courtney Pagan DCP- Discharge Planning Updated by [email or web address]: Lakeshia Jade on 08/21/19 9:[address] Patient Name: MELISSA CANSECO Admission Status: Urgent Accout number: [id number] Admission Date: 08-19-2019 : 1970 Admission Diagnosis: Attending: ANA TENA Current LOS: 2 Anticipated DC Date: Planned Disposition: Home Primary Insurance: [employer] [facility] [place]charge Planning Comments: CM met with patient to discuss discharge planning/needs, she is alone in the room. She lives with her independently. She states that she no longer drives (I just don't like to). States her , sister or neighbor drives her where she wants to go. States she has a rollator walker and oxygen concentrator at home. Her supplies come from [facility], but she would like to change companies. She asked me to call her shelter case manager from insurance to inquire about what company she can use. I called Miesha Rose at [facility] at [id number] and informed her that patient would like to change oxygen companies and also asking for a wheelchair. Miesha tells me that she would need to go through Dr. Tena office for the wheelchair since he is the one requesting it for the patient. Miesha states she is unsure if she can change oxygen companies, but will send me a list of DME companies in network. No other needs identified at this time. Patient denies need for home health services at this time, and she is independent. CM will continue to follow and assist with discharge planning/needs. Trademark Attorney: Lakeshia Jade DCP[facility] - Discharge Planning Initial Assessment Updated by [email or web address]: Lakeshia Jade on 08/21/19 10:23 am * Is the patient Alert and Oriented? Yes * How many steps to enter\exit or inside your home? 1/0 * PCP Dr. Tena * Pharmacy [facility] on [facility] * Preadmission Environment Home with Family * ADLs Partial Dependent * Partial ADLs (Assistance needed) Ambulation * Equipment Oxygen Walker * List name and contact numbers for known caregivers / representatives who currently or will assist patient after discharge: [facility] - [phone] * Verbal permission to speak to the caregivers and representatives has been obtained from the patient. Yes * Community resources currently utilized None * Please name any agencies selected above. DME company for oxygen is [facility] * Additional services required to return to the preadmission environment? No * Can the patient safely return to the preadmission environment? Yes * Has this patient been hospitalized within the prior 30 days at any hospital? No Coverage Notice Reviewer: [email or web address] - Lakeshia Jade Notice Issued Date-Time: 08/21/2019 16:28 Notice Type: Patient Choice Letter Notice Delivered To: Patient Relationship to Patient: Self Commercial Intelligence Manager Name: Delivery Method: HAND - Hand Delivered Halina Days: Prior Verbal Notification: Recipient Understood Notice: Yes Recipient Signature: Yes Med Rec Note Co-signed by Attending: Coverage Notice Comment: ABRAHAM FOR DIMITRIOS Ferrara DP export: 08/22/19 4:14 p Patient Name: MELISSA CANSECO Page [phone] at 0718 All edits/amendments must be made on the electronic document DICTATION DATE: 08/25/19716 SHEET METAL FABRICATOR: TOM 08/25/19716 RPT#: [id number] DC DATE:08/22/19 STATUS: DIS IN [facility] [address] [place] [address] END OF REPORT
--- NOTE | 2019-08-25 10:19 | OP ---
PATIENT NAME: MELISSA CANSECO MEDICAL RECORD: [id number] :[birth year] LOCATION:D.MS [id number] ADMISSION DATE:08/19/19 SURGEON: ASMITA JEAN BAPTISTE MD DATE OF OPERATION: 08/22/2019 PREOPERATIVE DIAGNOSES: 1. Abnormal MRI, which indicated a mass in the transverse colon. 2. Prior colonic prep yesterday preventing colonoscopy from being performed. POSTOPERATIVE DIAGNOSES: 1. Abnormal MRI, which indicated a mass in the transverse colon. 2. Prior colonic prep yesterday preventing colonoscopy from being performed. 3. No evidence of a colonic mass. PROCEDURES: Total colonoscopy to cecum. SURGEON: Asmita Jean Baptiste MD IMAGING ACCOUNT MANAGER: None. BLOOD LOSS: Minimal. ANESTHESIA: IV sedation. COMPLICATIONS: None. The risks, possible complications and alternatives to the procedure were explained to the patient. She elects to proceed. The discussion specifically included, but was not limited to, bleeding requiring emergency reoperation, infection, and endoscopic perforation. I noted no mucosal or submucosal masses. I noted no submucosal lipomas. I noted no pedunculated masses. I noted no sessile polyps. I noted no evidence of colitis or proctitis. This was essentially a completely normal colonoscopy. ENDOSCOPIC COURSE: The patient was conveyed to the endoscopy suite electively on 08/22/2019. IV sedation was induced by the anesthesia staff. The patient was placed in the De La Cruz position. A digital rectal examination was performed. A colonoscope was inserted through the anus. It was easily advanced to the cecum. The prep was adequate. I slowly withdrew the endoscope. I irrigated and aspirated extensively. I dragged the folds. A combination of normal imaging and narrow band imaging were utilized. In the transverse colon, I advanced and retracted multiple times in order to rule out any abnormality. A retroflexed view was obtained in the rectum. I then unretroflexed the scope and removed it under direct vision. After the patient awoke, I told her that we would obtain a CT scan for completeness sake, considering the abnormality on the MRI, which I cannot explain. The CT scan was performed. I personally reviewed the CT images. They revealed colitis versus under distention of the ascending and transverse colon. I think under distention this is likely what has occurred considering the patient has just undergone a colonoscopy prep. We were planning on dismissing the patient home, but this discharge will be canceled pending a cardiac OPERATIVE REPORT [id number] MELISSA CANSECO evaluation. An EKG had been performed and due to the EKG finding and some diastolic hypotension, the patient will be kept here in the hospital until cardiac evaluation is performed. TRANSINT:[id number] Voice Confirmation ID: [id number] DOCUMENT ID: [id number] 08/24/2019 Edited for senior assistant manager errors, [email or web address]. ASMITA JEAN BAPTISTE MD at 1019 CC: ANA AGGARWAL ST JOHN, GREGORY A MD and [place] DELGADO [id number] DICTATION DATE: 08/22/19 1602 BRIDGE OPERATOR: 08/22/19 2210 DIS IN 08/22/19 [id number] [place] [address]
== END 2019-08-22 18:55 | disposition home or self-care (01) | DRG 439 ==
LOC: D.MS 16:19
PROVIDERS: Internal Medicine Gastroenterology; Internal Medicine Nephrology; ADMIT Family Medicine; ATTEND Family Medicine
PROC: 0DJD8ZZ Inspection of Lower Intestinal Tract, Via Natural or Artificial Opening Endoscopic (ICD-10-PCS; principal; 2019-08-21 07:00)
PROC: 0DJD8ZZ Inspection of Lower Intestinal Tract, Via Natural or Artificial Opening Endoscopic (ICD-10-PCS; 2019-08-22)
DX: K85.90 Acute pancreatitis without necrosis or infection, unspecified (principal); E27.1 Primary adrenocortical insufficiency; E31.20 Multiple endocrine neoplasia [MEN] syndrome, unspecified; I10 Essential (primary) hypertension; K21.9 Gastro-esophageal reflux disease without esophagitis; E78.5 Hyperlipidemia, unspecified; E03.9 Hypothyroidism, unspecified; Z85.830 Personal history of malignant neoplasm of bone; Z85.850 Personal history of malignant neoplasm of thyroid; F17.200 Nicotine dependence, unspecified, uncomplicated; J44.9 Chronic obstructive pulmonary disease, unspecified; R93.3 Abnormal findings on diagnostic imaging of other parts of digestive tract

== ENCOUNTER → 2019-11-04 10:48 | Outpatient (CLI) | payer OTHER ==
[2019-08-20 13:47] VITALS: BMI 24.1
== END | disposition home or self-care (01) ==
LOC: D.RT
PROVIDERS: ATTEND Pediatrics
DX: Z02.71 Encounter for disability determination (principal)

== ENCOUNTER → 2020-04-06 09:30 | Outpatient (CLI) | payer BC, OTHER ==
[2019-11-16 11:09] VITALS: BMI 23.1
== END | disposition home or self-care (01) ==
LOC: D.RAD 09:30
PROVIDERS: ATTEND Surgery
DX: L08.9 Local infection of the skin and subcutaneous tissue, unspecified (principal)

== ENCOUNTER 2020-05-22 16:36 | Emergency (ER) | payer BC, MEDICAID ==
[~2020-05-22] VITALS: Ht 177.8 cm; Wt 70.0 kg
[2020-05-22 16:56] VITALS: Ht 177.8 cm; Wt 70.0 kg
[2020-05-22 17:06] LABS: ANION GAP 12.4 mmol/L (8-16); BASOPHILS 0.2 % (0-2); CARBON DIOXIDE 29.6 mmol/L (21.0-32.0); CREATININE - SERUM 1.1 mg/dL (0.6-1.3); HEMATOCRIT 41.3 % (36.0-48.0); HEMOGLOBIN 13.9 g/dL (12-16); IMMATURE GRANULOCYTES 0.4 % (0-5); LYMPHOCYTES 42.8 % (15-50); MCH 30.5 pg (26.0-34.0); MCHC 33.7 g/dL (31.0-37.0); MCV 90.6 fL (80.0-100.0); MEAN PLATELET VOLUME 9.3 fL (7.4-10.4); MONOCYTES 7.2 % (2-11); NEUTROPHILS 47.4 % (40-80); RBC 4.56 10x6/uL (4.00-5.40); RDW 13.4 % (11.5-14.5); WBC 8.4 10x3/uL (4.8-10.8)
[2020-05-22 17:07] LABS: PLATELET COUNT 341 10x3/uL (130-400)
[2020-05-22 17:12] LABS: BILIRUBIN - TOTAL 0.47 mg/dL (0.2-1.3); PROTEIN - SERUM 7.7 g/dL (6.4-8.2)
[2020-05-22 17:15] LABS: PROTIME 13.1 SECONDS (11.6-15.0)
[2020-05-22 17:17] LABS: D-DIMER-QUANTITATIVE 0.35 ug/mLFEU (0.20-0.54)
[2020-05-22 19:20] VITALS: BP 104/50
== END 2020-05-22 19:20 | disposition home or self-care (01) ==
LOC: D.ER 16:36
PROVIDERS: Family Medicine
DX: M79.604 Pain in right leg (principal)

== ENCOUNTER 2020-12-22 07:46 | Day surgery (SDC) | payer BC, MEDICAID ==
--- NOTE | 2020-12-21 11:51 | NUR ---
PT STATES HAS PORT IN PLACE WAS INSERTED BY DR ROLDAN FOR USE OF HER SURGERIES AND D/T SHE'S A HARD STICK AND DOESN'T HAVE ANY VEINS LEFT.
[~2020-12-22] VITALS: Ht 177.8 cm; Wt 62.3 kg
--- NOTE | ~2020-12-22 | OP ---
PATIENT NAME: MELISSA GOMEZ MEDICAL RECORD: [id number] :[birth year] LOCATION:[facility] ADMISSION DATE: SURGEON: MARQUIS ROLDAN MD DATE OF OPERATION: 12/22/2020 PREOPERATIVE DIAGNOSES: 1. Gastroesophageal reflux disease. 2. Hiatal hernia. 3. 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 5. Diabetes mellitus. 6. Pancreatic lesion. 7. History of thyroid cancer. 8. Hyperlipidemia. 9. Chronic steroid use. POSTOPERATIVE DIAGNOSES: 1. Gastroesophageal reflux disease. 2. Hiatal hernia. 3. 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 5. Diabetes mellitus. 6. Pancreatic lesion. 7. History of thyroid cancer. 8. Hyperlipidemia. 9. Chronic steroid use. PROCEDURE: 1. Laparoscopic Toupet fundoplication. 2. Pancreatic body biopsy. 3. Left liver biopsy. SURGEON: Marquis Roldan MD DESCRIPTION OF PROCEDURE: The patient's abdomen was prepped and draped in sterile fashion. A Veress needle was inserted in the left upper quadrant and the abdomen was insufflated. An 11-mm Visiport trocar was then inserted in the midline just above the umbilicus. I could see the Veress needle and there was no sign of any injury to bowel or surrounding structures. An 11-mm trocar was then placed in the left subcostal region and a 5-mm trocar was placed in the epigastrium. A 5-mm trocar was placed in the left lateral abdomen and a final 5-mm trocar was placed in the right lateral subcostal region. A liver retractor was inserted and the left lobe of the liver was elevated. There were some adhesions of the fatty tissue to the anterior abdominal wall present in the left upper quadrant and these were taken down with Harmonic scalpel. We then began our dissection by taking down the lesser omentum using Harmonic scalpel. This dissection was continued up to the right side of the right yulia. We scored the peritoneum and went up into the thoracic cavity, taking down the peritoneum and the small hernia sac. We went as far anteriorly and posteriorly as possible. Once we had done this, then we approached the greater curvature of the stomach. On the upper third of the stomach, we took down the short gastrics using Harmonic scalpel all the way up over the fundus to the left side of the right yulia. The peritoneum was scored and we were able to penetrate up into the thoracic cavity and eventually dissect out the tissues around the distal esophagus, until about 2-3 cm was easily resting in the abdominal cavity without OPERATIVE REPORT [id number] MELISSA GOMEZ JULIENNE any tension. The left vagus nerve was clearly visualized and I felt that I could see what looked like the right vagus nerve. Both of these were maintained through the procedure and not injured. We then reapproximated the esophageal hiatus with interrupted 0 Polydeks times 3. The fundus of the stomach was then pulled around the distal esophagus in a 270-degree Toupet wrap. This was sutured into place with interrupted 0 Polydeks times 6. At the conclusion of the case, we could see there was a little bit of bleeding from a small tear on the anterior aspect of the spleen. This was treated with electrocautery and stopped any bleeding. We irrigated out the abdominal cavity. The patient had a pancreatic cystic lesion that was present on a preoperative CT scans. I went ahead and was able to visualize the anterior aspect of the patient's pancreas and on the mid pancreas on the inferior aspect, there was a very small cystic lesion present. I went ahead and just biopsied this lesion and sent this off for permanent specimen. There was clear fluid present within it. I did not see that this was connected in any way to any surrounding structures. The area was then treated with electrocautery to stop any bleeding. As we were pulling back, we could see there was also an unusual shaped lesion on the inferior aspect of the left lobe of the liver. This had a white substance over top of it, almost like which you would see in a sebaceous cyst. As I felt around this lesion that white substance easily came off leaving a nodular lesion. I went ahead and did a sharp dissection using Metzenbaum scissors overlying this mass and removed what appeared to be the anterior aspect of the cystic lesion. This was sent off for permanent specimen as well. I treated the underlying tissues with electrocautery and assured there was no sign of any bleeding anywhere in the abdominal cavity. At this point, the 11-mm trocar site fascias were closed with 0 Vicryl using a Juancho-Mina suture passer device. The ports and insufflation were then removed. The wounds were infused with a total of 10 mL of 0.25% Marcaine with epinephrine and then skin incisions were closed with subcutaneous 5-0 Monocryl. COMPLICATIONS: None. CONDITION: Stable. ANESTHESIA: General endotracheal and local. BLOOD LOSS: 50 mL. TRANSINT:[id number] Voice Confirmation ID: [id number] DOCUMENT ID: [id number] MARQUIS ROLDAN MD CC: ANA AGGARWAL [id number] DICTATION DATE: 12/22/20 1153 CREATIVE STRATEGIST: 12/22/20 1322 REG [facility] [address] [id number]
[2020-12-22 08:11] LABS: APTT 28.1 SECONDS (22.8-39.4); INR 1.02 (0.85-1.17); PROTIME 12.4 SECONDS (11.6-15.0)
[2020-12-22 08:16] LABS: ANION GAP 9.4 mmol/L (8-16); CALCIUM 8.9 mg/dL (8.5-10.1); CARBON DIOXIDE 29.5 mmol/L (21.0-32.0); POTASSIUM - SERUM 3.9 mmol/L (3.5-5.1)
[2020-12-22 08:20] LABS: BASOPHILS 0.4 % (0-2); HEMATOCRIT 39.2 % (36.0-48.0); HEMOGLOBIN 13.2 g/dL (12-16); IMMATURE GRANULOCYTES 0.1 % (0-5); LYMPHOCYTE ABS# 3.86 10x3/uL (1.18-3.74); LYMPHOCYTES 39.5 % (15-50); MCH 29.9 pg (26.0-34.0); MCHC 33.7 g/dL (31.0-37.0); MCV 88.7 fL (80.0-100.0); MEAN PLATELET VOLUME 8.9 fL (7.4-10.4); MONOCYTES 6.3 % (2-11); NEUTROPHIL ABS# 5.05 10x3/uL (1.56-6.13); NEUTROPHILS 51.7 % (40-80); RBC 4.42 10x6/uL (4.00-5.40); RDW 13.1 % (11.5-14.5); WBC 9.8 10x3/uL (4.8-10.8)
[2020-12-22 08:22] LABS: PLATELET COUNT 371 10x3/uL (130-400)
[2020-12-22 09:09] VITALS: BP 102/66; BMI 19.8
[2020-12-22] MEDS ORDERED: PROVENTIL/2.5 MG/3 M INH (09:27)
[2020-12-22] MEDS ORDERED: CYANOCOBAL1000 MCG/4 SC (09:29)
[2020-12-22 12:00] VITALS: BP 105/59
--- NOTE | 2020-12-22 12:43 | NUR ---
PATIENT STATES 10/10 PAIN AFTER 2 MG OF DILAUDED 25 OF DEM AND 12.5 PH PHENERGAN VS IS 64 SINUS AND 112/52 BP AND 100% ON 2L PATIENT WAKES UP AND STARTA MOANING AND GRIMACING STATING SHE IS GOING TO THROW UP. EMESIS BAG AT BEDSIDE. LIGHTS OFF AND COLD RAG PROVIDED
--- NOTE | 2020-12-22 12:51 | NUR ---
WHEN ASKED HOW PAIN WAS RATED SHE SAID IT WAS A 25/10. ANESTHESIA STATED NO MORE PAIN MEDS. SHE HAS ORDERS FOR DILAUDED SENIOR SOFTWARE DEVELOPMENT ENGINEER ON FLOOR. GARRETT GOES TOS LEEP AND AWAKES WHEN SPOKEN TO. ALERT AND ORIENTED. DROWSY
[2020-12-22 13:06] VITALS: BP 105/59
[2020-12-22 14:34] VITALS: BP 94/58; Ht 177.8 cm; Wt 62.3 kg
[2020-12-22 16:00] VITALS: BP 93/53
[2020-12-22 20:00] VITALS: BP 99/50
[2020-12-23] VITALS: BP 86/45
[2020-12-23 04:00] VITALS: BP 87/34
--- NOTE | 2020-12-23 04:48 | NUR ---
I have reviewed this patient and I concur with the Shift Assessment completed by the Licensed Practical Nurse today this shift.
[2020-12-23 05:07] LABS: BASOPHILS 0.1 % (0-2); EOSINOPHILS 0 % (0-7); HEMATOCRIT 32.2 % (36.0-48.0); HEMOGLOBIN 10.8 g/dL (12-16); IMMATURE GRANULOCYTES 0.3 % (0-5); LYMPHOCYTES 8.1 % (15-50); MCH 29.5 pg (26.0-34.0); MCHC 33.5 g/dL (31.0-37.0); MEAN PLATELET VOLUME 9.1 fL (7.4-10.4); MONOCYTES 7.8 % (2-11); NEUTROPHIL ABS# 11.36 10x3/uL (1.56-6.13); NEUTROPHILS 83.7 % (40-80); PLATELET COUNT 309 10x3/uL (130-400); RBC 3.66 10x6/uL (4.00-5.40)
[2020-12-23 05:19] LABS: WBC 13.6 10x3/uL (4.8-10.8)
[2020-12-23 05:25] LABS: CARBON DIOXIDE 26.2 mmol/L (21.0-32.0); POTASSIUM - SERUM 4.2 mmol/L (3.5-5.1)
--- NOTE | 2020-12-23 09:00 | NUR ---
ALERT AND ORIENTED WITH LAB SITES TO ABDOMEN INTACT WITH BOWEL SOUNDS NOTED WITH FLATULANCE. IVF AND PICK AND SHOVEL WORKER DILAUDID AT PRESCRIBED SETTINGS WITH NO S/S OF INFILTRATION AT MEDIPORT SITE TO LUQ OF CHEST. UP ADLIB TO BATHROOM AND ENCOURAGED AND INSTRUCTED ON INCENTIVE SPIROMETER AND USE OF CALL LIGHT FOR ASSSIT.
[2020-12-23 09:23] VITALS: BP 97/49
[2020-12-23 12:34] VITALS: BP 86/52
[2020-12-23] MEDS ORDERED: REGLAN10 MG PO (14:33)
[2020-12-23] MEDS ORDERED: PERCOCET 5-3251 TAB PO (14:33)
--- NOTE | 2020-12-23 16:44 | NUR ---
MEDIPORT DEACCESSED AND VERBALIZED UNDERSTANDING OF DISCHARGE INSTRUCTIONS. STABLE AT TIME OF DISCHARGE.
== END 2020-12-23 16:45 | disposition home or self-care (01) ==
LOC: D.OPS 07:46 → D.MS 13:15 → D.OPS 12-23 16:45
PROVIDERS: Anesthesiology; ATTEND Surgery
DX: K44.9 Diaphragmatic hernia without obstruction or gangrene (principal); E27.0 Other adrenocortical overactivity; E27.1 Primary adrenocortical insufficiency; E11.9 Type 2 diabetes mellitus without complications; K86.9 Disease of pancreas, unspecified; Z85.850 Personal history of malignant neoplasm of thyroid; E78.5 Hyperlipidemia, unspecified; Z79.52 Long term (current) use of systemic steroids; K21.00 Gastro-esophageal reflux disease with esophagitis, without bleeding; E31.22 Multiple endocrine neoplasia [MEN] type IIA; E09.9 Drug or chemical induced diabetes mellitus without complications